=== PATIENT | female | born 1935 | race Caucasian/White ===

== ENCOUNTER → 2016-03-26 | Outpatient (CLI) | payer OTHER, MEDICARE ==
[~2016-03-26] MED LIST: CETI10TA84 PO; CHOL100010 PO; CLC6 PO; CMD5 PO; CRDCD180 PO; GABA-112 PO; GABA1CAP5 PO; HMLIS SQ; INSDGIPEN SC; LCTX PO; LSX40 PO; METO25TA3 PO; PRLSR20 PO; SPIR50TA2 PO; SYN75 PO
[2016-03-26 11:30] LABS: ESTIMATED AVERAGE GLUCOSE 166 mg/dl; HA1C FLAG Normal (Normal)
== END | disposition home or self-care (01) ==
LOC: C.LAB1850 10:18
PROVIDERS: ATTEND Family Medicine
DX: E11.9 Type 2 diabetes mellitus without complications (principal)

== ENCOUNTER → 2016-04-09 | Outpatient (CLI) | payer OTHER, MEDICARE ==
--- NOTE | 2016-04-14 06:58 | CODING QUERY MEDICAL NECESSITY ---
SUPPORTING DIAGNOSIS NEEDED A supporting diagnosis is required for the test/procedure performed on this patient in order for us to be reimbursed by the patient's insurance. Please provide a supporting diagnosis for the following test/procedure listed below next to the test name along with your signature. *If there is no additional diagnosis for this patient that would support the following test/procedure please document that below next to the test/procedure. Test(s)/Procedure(s) that require a supporting diagnosis: * DXA BONE DENSITY DIAGNOSIS: * DOS: 04/09/16 Provider Signature: Date: Thank you Yusra More Health Information Management Once completed, please kindly fax back to [phone] For questions please call [phone]
== END | disposition home or self-care (01) ==
LOC: C.MAMM 08:59
PROVIDERS: ATTEND Family Medicine
DX: M85.80 Other specified disorders of bone density and structure, unspecified site (principal); M85.852 Other specified disorders of bone density and structure, left thigh; M85.851 Other specified disorders of bone density and structure, right thigh

== ENCOUNTER → 2016-06-30 | Outpatient (CLI) | payer OTHER, MEDICARE ==
[2016-06-30 12:27] LABS: HEMATOCRIT 38.1 % (37-47); MEAN CELL VOLUME 96.2 fL (80-100); MEAN CORPUSCULAR HEMOGLOBIN 31.3 pg (25-34); MEAN CORPUSCULAR HGB CONC 32.5 g/dl (32-36); MEAN PLATELET VOLUME 9.6 fL (7.4-10.4); PLATELET COUNT 170 K/uL (130-400); RED BLOOD COUNT 3.96 M/uL (4.2-5.4); WHITE BLOOD COUNT 6.72 K/uL (4.8-10.8)
[2016-06-30 12:47] LABS: URINE APPEARANCE CLEAR (CLEAR); URINE BILIRUBIN NEG (NEG); URINE COLOR YELLOW; URINE NITRITE NEG (NEG); URINE SPECIFIC GRAVITY 1.013 (1.000-1.030); UROBILINOGEN NEG (NEG)
[2016-06-30 12:55] LABS: MANUAL MICROSCOPIC REQUIRED? NO; REVIEW REQ? NO
[2016-06-30 13:04] LABS: URINE PROTIEN/CREAT RATIO 0.3 (0-0.2); URINE TOTAL PROTEIN 10.1 mg/dl (0-11.9)
[2016-06-30 13:14] LABS: BLOOD UREA NITROGEN 76 mg/dl (7-18); BUN/CREATININE RATIO 41.9 (10-20); CARBON DIOXIDE 24 mmol/L (21-32); CHLORIDE 105 mmol/L (98-107); GLUCOSE 163 mg/dl (70-99); POTASSIUM 4.4 mmol/L (3.5-5.1); SODIUM 138 mmol/L (136-145)
[2016-06-30 13:15] LABS: PHOSPHORUS 3.6 mg/dl (2.5-4.9)
[2016-06-30 13:30] LABS: CALCIUM 9.6 mg/dl (8.5-10.1)
== END | disposition home or self-care (01) ==
LOC: C.LAB1850 10:47
PROVIDERS: ATTEND Internal Medicine Nephrology
DX: N18.3 Chronic kidney disease, stage 3 (moderate) (principal); I12.9 Hypertensive chronic kidney disease with stage 1 through stage 4 chronic kidney disease, or unspecified chronic kidney disease; N25.81 Secondary hyperparathyroidism of renal origin; E55.9 Vitamin D deficiency, unspecified; R80.9 Proteinuria, unspecified; D64.9 Anemia, unspecified

== ENCOUNTER → 2016-07-22 | Outpatient (CLI) | payer OTHER, MEDICARE ==
[2016-07-22 13:29] LABS: CHOLESTEROL/HDL RATIO 4.1; THYROID STIMULATING HORMONE 4.82 uIu/ml (0.300-4.500)
[2016-07-22 13:38] LABS: ESTIMATED AVERAGE GLUCOSE 169 mg/dl; HA1C FLAG Normal (Normal)
== END | disposition home or self-care (01) ==
LOC: C.LAB1850 11:17
PROVIDERS: ATTEND Family Medicine
DX: E11.9 Type 2 diabetes mellitus without complications (principal); K74.60 Unspecified cirrhosis of liver; E03.9 Hypothyroidism, unspecified

== ENCOUNTER → 2016-09-11 | Outpatient (CLI) | payer OTHER, MEDICARE ==
--- NOTE | 2016-09-11 12:44 | DIAGNOSTIC IMAGING REPORT ---
RIGHT ANKLE MIN 3 VIEWS ROUTINE HISTORY:79 [id number] Ankle sprain. COMPARISON: None available. TECHNIQUE: 3 views of the right ankle. FINDINGS: No acute fracture or dislocation is identified. There moderate degenerative changes of the tibiotalar joint, hindfoot and imaged mid foot with prominent spurring about the calcaneus. Vascular calcifications are noted. There is spurring of the distal tibiofibular syndesmosis. There is moderate soft tissue swelling of the imaged lower extremity without radiopaque foreign body. IMPRESSION: 1. Moderate soft tissue swelling about the lower extremity without acute fracture or dislocation identified. 2. Moderate degenerative changes of the tibiotalar joint, hindfoot and imaged midfoot. 3. Peripheral vascular disease. The above report was generated using voice recognition software. It may contain grammatical, syntax or spelling errors. Electronically signed by: Sukhwinder Francisco 09/11/2016 12:42 PM Dictated Date/Time: 09/11/2016 12:40 PM
== END | disposition home or self-care (01) ==
LOC: C.RADBC 12:16
PROVIDERS: ATTEND Internal Medicine
DX: S99.919A Unspecified injury of unspecified ankle, initial encounter (principal); X58.XXXA Exposure to other specified factors, initial encounter

== ENCOUNTER → 2016-09-16 | Outpatient (CLI) | payer OTHER, MEDICARE | END | disposition home or self-care (01) | LOC: C.LABBC 10:30 | PROVIDERS: ATTEND Physician Assistant | DX: M10.9 Gout, unspecified (principal) ==

== ENCOUNTER → 2016-10-27 | Outpatient (CLI) | payer OTHER, MEDICARE ==
[2016-10-27 12:16] LABS: BLOOD UREA NITROGEN 46 mg/dl (7-18); BUN/CREATININE RATIO 30.4 (10-20); CALCIUM 8.9 mg/dl (8.5-10.1); CARBON DIOXIDE 25 mmol/L (21-32); CHLORIDE 106 mmol/L (98-107); GLUCOSE 210 mg/dl (70-99); POTASSIUM 5.1 mmol/L (3.5-5.1); SODIUM 137 mmol/L (136-145)
== END | disposition home or self-care (01) ==
LOC: C.LAB1850 10:40
PROVIDERS: ATTEND Internal Medicine Cardiovascular Disease
DX: N18.3 Chronic kidney disease, stage 3 (moderate) (principal); I12.9 Hypertensive chronic kidney disease with stage 1 through stage 4 chronic kidney disease, or unspecified chronic kidney disease; I50.30 Unspecified diastolic (congestive) heart failure; R60.0 Localized edema

== ENCOUNTER → 2016-11-10 | Outpatient (CLI) | payer OTHER, MEDICARE ==
[2016-11-10 13:27] LABS: BLOOD UREA NITROGEN 70 mg/dl (7-18); BUN/CREATININE RATIO 41.4 (10-20); CALCIUM 9.4 mg/dl (8.5-10.1); CARBON DIOXIDE 23 mmol/L (21-32); CHLORIDE 103 mmol/L (98-107); GLUCOSE 297 mg/dl (70-99); POTASSIUM 4.7 mmol/L (3.5-5.1); SODIUM 136 mmol/L (136-145)
== END | disposition home or self-care (01) ==
LOC: C.LAB1850 10:05
PROVIDERS: ATTEND Physician Assistant
DX: I50.30 Unspecified diastolic (congestive) heart failure (principal)

== ENCOUNTER → 2016-11-26 | Outpatient (CLI) | payer OTHER, MEDICARE ==
[2016-11-26 17:04] LABS: BLOOD UREA NITROGEN 62 mg/dl (7-18); BUN/CREATININE RATIO 41.6 (10-20); CARBON DIOXIDE 23 mmol/L (21-32); CHLORIDE 103 mmol/L (98-107); GLUCOSE 160 mg/dl (70-99); SODIUM 133 mmol/L (136-145)
== END | disposition home or self-care (01) ==
LOC: C.LAB1850 16:01
PROVIDERS: ATTEND Internal Medicine
DX: M10.9 Gout, unspecified (principal)

== ENCOUNTER → 2016-12-07 | Outpatient (CLI) | payer OTHER, MEDICARE | END | disposition home or self-care (01) | LOC: C.LAB1850 11:13 | PROVIDERS: ATTEND Nurse Practitioner Adult Health | DX: M10.9 Gout, unspecified (principal) ==

== ENCOUNTER → 2016-12-30 | Outpatient (CLI) | payer OTHER, MEDICARE ==
[2016-12-30 14:41] LABS: HEMATOCRIT 36.5 % (37-47); MEAN CELL VOLUME 90.8 fL (80-100); MEAN CORPUSCULAR HEMOGLOBIN 31.1 pg (25-34); MEAN CORPUSCULAR HGB CONC 34.2 g/dl (32-36); MEAN PLATELET VOLUME 9.8 fL (7.4-10.4); PLATELET COUNT 150 K/uL (130-400); RED BLOOD COUNT 4.02 M/uL (4.2-5.4); WHITE BLOOD COUNT 15.57 K/uL (4.8-10.8)
[2016-12-30 14:53] LABS: URINE APPEARANCE CLEAR (CLEAR); URINE BILIRUBIN NEG (NEG); URINE COLOR YELLOW; URINE NITRITE NEG (NEG); URINE SPECIFIC GRAVITY 1.015 (1.000-1.030); UROBILINOGEN NEG (NEG)
[2016-12-30 14:54] LABS: MANUAL MICROSCOPIC REQUIRED? NO; REVIEW REQ? NO
[2016-12-30 15:00] LABS: BLOOD UREA NITROGEN 94 mg/dl (7-18); BUN/CREATININE RATIO 46.6 (10-20); CALCIUM 9.3 mg/dl (8.5-10.1); CARBON DIOXIDE 25 mmol/L (21-32); CHLORIDE 97 mmol/L (98-107); CREATININE 2.02 mg/dl (0.60-1.20); GLUCOSE 189 mg/dl (70-99); PHOSPHORUS 2.4 mg/dl (2.5-4.9); POTASSIUM 4.3 mmol/L (3.5-5.1); SODIUM 131 mmol/L (136-145)
[2016-12-30 15:03] LABS: CREATININE, URINE 41.1 mg/dl; URINE PROTIEN/CREAT RATIO 0.2 (0-0.2); URINE TOTAL PROTEIN 9.6 mg/dl (0-11.9)
== END | disposition home or self-care (01) ==
LOC: C.LAB1850 12:50
PROVIDERS: ATTEND Internal Medicine Nephrology
DX: I12.9 Hypertensive chronic kidney disease with stage 1 through stage 4 chronic kidney disease, or unspecified chronic kidney disease (principal); N18.3 Chronic kidney disease, stage 3 (moderate); N25.81 Secondary hyperparathyroidism of renal origin; E55.9 Vitamin D deficiency, unspecified; R80.9 Proteinuria, unspecified; D64.9 Anemia, unspecified

== ENCOUNTER → 2017-01-18 | Outpatient (CLI) | payer OTHER, MEDICARE ==
--- NOTE | 2017-01-19 07:43 | MAMMOGRAPHY REPORT ---
BILATERAL DIGITAL SCREENING MAMMOGRAM WITH CAD: 01/18/2017 CLINICAL HISTORY: Routine screening. Patient has no complaints. TECHNIQUE: Bilateral CC, MLO and repeat left MLO views were obtained. Current study was also evalua laura with a Computer Aided Detection (CAD) system. COMPARISON: Comparison is made to exams dated: 01/16/2016 mammogram, 08/22/2014 mammogram, 11/08/2012 m ammogram, 10/28/2011 mammogram, 09/19/2010 mammogram, and 04/09/2009 mammogram - [facility]. BREAST COMPOSITION: There are scattered areas of fibroglandular density in both breasts. FINDINGS: There are moderate to marked vascular calcifications and benign rim and coarse calcificati ons in both breasts. No new suspicious mass, architectural distortion or cluster of microcalcificat ions is seen. IMPRESSION: ACR BI-RADS CATEGORY 2: BENIGN There is no mammographic evidence of malignancy. A 1 year screening mammogram is recommended. The pa tient will receive written notification of the results. Approximately 10% of breast cancers are not detected with mammography. A negative mammographic report should not delay biopsy if a clinically suggestive mass is present. Carrie Slaughter M.D. ay/:01/18/2017 15:23:54 Floor Care Specialist: Nancie HAIDERR, M, [facility] letter sent: Normal 1/2 BI-RADS Code: ACR BI-RADS Category 2: Benign
== END | disposition home or self-care (01) ==
LOC: C.MAMM 13:28
PROVIDERS: ATTEND Internal Medicine
DX: Z12.31 Encounter for screening mammogram for malignant neoplasm of breast (principal)

== ENCOUNTER → 2017-02-09 | Outpatient (CLI) | payer OTHER, MEDICARE ==
[2017-02-09 13:51] LABS: BLOOD UREA NITROGEN 86 mg/dl (7-18); BUN/CREATININE RATIO 46.2 (10-20); CALCIUM 9.6 mg/dl (8.5-10.1); CARBON DIOXIDE 21 mmol/L (21-32); CHLORIDE 103 mmol/L (98-107); CREATININE 1.86 mg/dl (0.60-1.20); GLUCOSE 164 mg/dl (70-99); POTASSIUM 4.6 mmol/L (3.5-5.1); SODIUM 133 mmol/L (136-145); URIC ACID 7.1 mg/dl (2.6-7.2)
== END | disposition home or self-care (01) ==
LOC: C.LAB1850 11:24
PROVIDERS: ATTEND Internal Medicine Rheumatology
DX: N18.3 Chronic kidney disease, stage 3 (moderate) (principal)

== ENCOUNTER → 2017-02-10 | Outpatient (CLI) | payer OTHER, MEDICARE ==
[2017-02-10 13:22] LABS: MEAN CELL VOLUME 92.7 fL (80-100); MEAN CORPUSCULAR HEMOGLOBIN 31.3 pg (25-34); MEAN CORPUSCULAR HGB CONC 33.8 g/dl (32-36); MEAN PLATELET VOLUME 10.2 fL (7.4-10.4); PLATELET COUNT 149 K/uL (130-400); RED BLOOD COUNT 3.99 M/uL (4.2-5.4); WHITE BLOOD COUNT 11.86 K/uL (4.8-10.8)
[2017-02-10 13:53] LABS: BLOOD UREA NITROGEN 78 mg/dl (7-18); CALCIUM 9.3 mg/dl (8.5-10.1); CARBON DIOXIDE 22 mmol/L (21-32); CHLORIDE 102 mmol/L (98-107); GLUCOSE 270 mg/dl (70-99); PHOSPHORUS 2.7 mg/dl (2.5-4.9); POTASSIUM 4.8 mmol/L (3.5-5.1); SODIUM 132 mmol/L (136-145)
[2017-02-10 14:51] LABS: URINE APPEARANCE CLEAR (CLEAR); URINE BILIRUBIN NEG (NEG); URINE COLOR ORANGE; URINE EPITHELIAL CELL AUTO 20-30 /lpf (0-5); URINE NITRITE NEG (NEG); URINE SPECIFIC GRAVITY 1.016 (1.000-1.030); UROBILINOGEN NEG (NEG)
[2017-02-10 14:52] LABS: MANUAL MICROSCOPIC REQUIRED? NO; REVIEW REQ? NO
[2017-02-10 15:10] LABS: CREATININE, URINE 22.7 mg/dl; URINE PROTIEN/CREAT RATIO 0.6 (0-0.2); URINE TOTAL PROTEIN 14.6 mg/dl (0-11.9)
== END | disposition home or self-care (01) ==
LOC: C.LAB1850 12:27
PROVIDERS: ATTEND Internal Medicine Nephrology
DX: N18.3 Chronic kidney disease, stage 3 (moderate) (principal); N25.81 Secondary hyperparathyroidism of renal origin; D64.9 Anemia, unspecified; E55.9 Vitamin D deficiency, unspecified

== ENCOUNTER → 2017-02-15 | Outpatient (CLI) | payer OTHER, MEDICARE | END | disposition home or self-care (01) | LOC: C.LAB1850 11:27 | PROVIDERS: ATTEND Internal Medicine Rheumatology | DX: N18.3 Chronic kidney disease, stage 3 (moderate) (principal) ==

== ENCOUNTER → 2017-04-16 | Outpatient (CLI) | payer OTHER, MEDICARE ==
[~2017-04-16] MED LIST changes: +GABA-1220 PO; -GABA1CAP5 PO
== END | disposition home or self-care (01) ==
LOC: C.LAB1850 11:52
PROVIDERS: ATTEND Internal Medicine Rheumatology
DX: M10.9 Gout, unspecified (principal)

== ENCOUNTER 2017-04-26 11:36 | Emergency (ER) | payer OTHER, MEDICARE ==
[~2017-04-26] VITALS: Ht 167.6 cm; Wt 96.9 kg
[2017-04-26 11:44] VITALS: TEMP 36.7; Ht 167.6 cm; Wt 96.9 kg
[2017-04-26] MEDS ORDERED: INSDGI SC (12:20)
[2017-04-26] MEDS ORDERED: NRN400 PO (12:20)
[2017-04-26] MEDS ORDERED: CALC600T PO (12:20)
[2017-04-26] MEDS ORDERED: DTRSR/10 PO (12:20)
[2017-04-26] MEDS ORDERED: QSTP/ PO (12:20)
[2017-04-26] MEDS ORDERED: APIX1TAB PO (12:20)
[2017-04-26] MEDS ORDERED: FERR325T18 PO (12:20)
[2017-04-26] MEDS ORDERED: FEBU40TA PO (12:20)
[2017-04-26] MEDS ORDERED: CZR25 PO (12:20)
[2017-04-26] MEDS ORDERED: CETI10TA84 PO (12:20)
[2017-04-26] MEDS ORDERED: CLR10 PO (12:20)
[2017-04-26] MEDS ORDERED: CHOL1000 PO (12:20)
[2017-04-26] MEDS ORDERED: SYN100 PO (12:20)
[2017-04-26] MEDS ORDERED: FRS/40 PO (12:20)
[2017-04-26] MEDS ORDERED: ASCA500 PO (12:20)
[2017-04-26] MEDS ORDERED: HMLIS SC (12:20)
[2017-04-26] MEDS ORDERED: DPRSCR15 TOP (12:20)
[2017-04-26] MEDS ORDERED: SPIR50TA2 PO (12:20)
[2017-04-26] MEDS ORDERED: DILT120C68 PO (12:20)
--- NOTE | 2017-04-26 12:51 | DIAGNOSTIC IMAGING REPORT ---
CT SCAN OF THE BRAIN WITHOUT IV CONTRAST CLINICAL HISTORY: Fall. Trauma. COMPARISON STUDY: CT of the brain dated 10/29/2013. TECHNIQUE: Unenhanced axial CT scan of the brain is performed from the vertex to the skull base. A dose lowering technique was utilized adhering to the principles of ALARA. The examination is moderately degraded by motion artifact. CT DOSE: 1402.45 mGy.cm FINDINGS: Brain parenchyma: Left parietal encephalomalacia is unchanged and consistent with a remote insult. There are age-related involutional changes noting mild subcortical and periventricular microangiopathic change. There is no hemorrhage, mass effect, or evidence of acute territorial ischemia by CT criteria. Ray-white matter is preserved. No extra-axial fluid collection is seen. Ventricles, sulci, cisterns: Prominent secondary to involutional change. Intracranial vasculature: There is atherosclerotic calcification of the cavernous carotid and vertebral arteries. Calvarium: The skeletal structures are osteopenic. No depressed calvarial fracture is seen. Soft tissues: There is a left frontal scalp hematoma. Sinuses and mastoids: Moderate mucosal thickening is seen in the right maxillary antrum. Mucosal thickening and fluid is seen within the sphenoid sinuses. The remaining Visualized paranasal sinuses are clear. The mastoid air cells are well pneumatized. Orbits: The bony orbits are grossly intact. There are bilateral ocular lens implants. IMPRESSION: 1. There is no hemorrhage, mass effect, or evidence of acute territorial ischemia by CT criteria noting a motion compromised examination. 2. Left frontal scalp hematoma. No depressed calvarial fracture is seen. 3. Paranasal sinus disease as above. Electronically signed by: Keo Adorno M.D. 04/26/2017 12:50 PM Dictated Date/Time: 04/26/2017 12:47 PM
--- NOTE | 2017-04-26 12:54 | DIAGNOSTIC IMAGING REPORT ---
CT OF THE CERVICAL SPINE WITHOUT CONTRAST CLINICAL HISTORY: Fall. COMPARISON STUDY: No previous studies for comparison. TECHNIQUE: Helical axial images of the cervical spine were obtained without IV contrast. Sagittal and coronal reconstructions were viewed. A dose lowering technique was utilized adhering to the principles of ALARA. FINDINGS: Alignment of the cervical spine is anatomic. The craniocervical junction is intact. There is no acute cervical spine fracture. There is extensive anterior osteophytosis of the cervical spine and upper thoracic spine. There is no prevertebral edema. IMPRESSION: 1. No acute cervical spine fracture or subluxation. 2. Extensive anterior osteophytosis of the cervical spine and upper thoracic spine. Electronically signed by: Ritesh Cobb M.D. 04/26/2017 12:53 PM Dictated Date/Time: 04/26/2017 12:49 PM
[2017-04-26 13:10] LABS: BASO % 0.2 %; BASO ABS # 0.02 K/uL (0-0.2); HEMATOCRIT 37.6 % (37-47); HEMOGLOBIN 13.2 g/dL (12.0-16.0); IG# 0.21 K/uL (0.00-0.02); LYMPH % 5.1 %; LYMPH ABS # 0.58 K/uL (1.2-3.4); MEAN CELL VOLUME 89.3 fL (80-100); MEAN CORPUSCULAR HEMOGLOBIN 31.4 pg (25-34); MEAN CORPUSCULAR HGB CONC 35.1 g/dl (32-36); MEAN PLATELET VOLUME 9.5 fL (7.4-10.4); MONO % 5.4 %; MONO ABS # 0.61 K/uL (0.11-0.59); NEUT % 87.4 %; NEUT ABS # 9.87 K/uL (1.4-6.5); NUCLEATED RED BLOOD CELL ABS 0.04 K/uL (0-0); PLATELET COUNT 249 K/uL (130-400); RED CELL DISTRIBUTION WIDTH SD 45.6 fL (36.4-46.3); WHITE BLOOD COUNT 11.29 K/uL (4.8-10.8)
[2017-04-26] MEDS ORDERED: SODIUM CHLORIDE 0.9% 1000ML 1,000 ML IV STA (13:21)
--- NOTE | 2017-04-26 13:23 | DIAGNOSTIC IMAGING REPORT ---
L TIBIA/FIBULA 2 VIEWS ROUTINE CLINICAL HISTORY: L bobby pain COMPARISON: None. DISCUSSION: The bones are osteopenic. There is anterior soft tissue edema. There are vascular calcifications present. No acute fractures are visualized. There are postsurgical changes present within the talus. IMPRESSION: Soft tissue swelling. No acute fractures identified. Electronically signed by: Greg Gonzalez M.D. 04/26/2017 1:21 PM Dictated Date/Time: 04/26/2017 1:20 PM
--- NOTE | 2017-04-26 13:25 | DIAGNOSTIC IMAGING REPORT ---
RIGHT FOOT 2 VIEWS CLINICAL HISTORY: Fall with right foot pain. FINDINGS: AP and lateral views of the right foot are obtained. No prior studies are available for comparison at the time of dictation. The skeletal structures are osteopenic. No fracture is seen. Moderate arthritic change is seen at the first metatarsophalangeal joint. Moderate arthritic change is also seen in the midfoot. There is a large plantar calcaneal enthesophyte. No erosive disease is seen. Degenerative spurring is noted along the dorsal aspect of the tarsal bones. Soft tissue edema is present in the right foot and ankle. Advanced atherosclerotic calcification is noted in the regional arteries. IMPRESSION: 1. Soft tissue swelling with no fracture identified. 2. Osteopenia, arthritic change, and heel spur as above. Electronically signed by: Keo Adorno M.D. 04/26/2017 1:24 PM Dictated Date/Time: 04/26/2017 1:21 PM
[2017-04-26 13:34] LABS: ALBUMIN 3.4 gm/dl (3.4-5.0); CALCIUM 10.1 mg/dl (8.5-10.1); CREATININE 1.79 mg/dl (0.60-1.20); POTASSIUM 4.9 mmol/L (3.5-5.1); TOTAL PROTEIN 7.3 gm/dl (6.4-8.2)
[2017-04-26] MEDS ORDERED: NovoLIN-R INSULIN PER UNIT CHARGE SC STA (13:40)
--- NOTE | 2017-04-26 13:48 | DIAGNOSTIC IMAGING REPORT ---
CT SCAN OF THE FACIAL BONES WITHOUT IV CONTRAST CLINICAL HISTORY: Fall with facial injury. COMPARISON STUDY: CT of the brain performed the same day 04/26/2017. CT scan of the sinuses dated 04/16/2006. TECHNIQUE: High-resolution CT scan of the facial bones is performed. Images are reviewed in the axial, sagittal, and coronal planes. IV contrast was not administered for this examination. A dose lowering technique was utilized adhering to the principles of ALARA. FINDINGS: The skeletal structures are osteopenic. There is no evidence of facial bone fracture. The bony orbits are intact and the orbital contents are within normal limits noting bilateral ocular lens implants. The zygomatic arches, nasal bones, and pterygoid plates are preserved. The maxilla and mandible are intact. Arthritic change is seen at the temporomandibular joints. There are no layering blood products within the paranasal sinuses. Moderate mucosal thickening and calcified debris is present within the right maxillary antrum. Trace mucosal thickening is seen in the left maxillary antrum. Fluid and secretions are seen within the sphenoid sinuses. The mastoid air cells are well pneumatized. The visualized calvarium and upper cervical spine are maintained. Cervical spondylosis is partially imaged. Partially imaged brain parenchyma is within normal limits noting age-related involutional change. There is a left frontal and periorbital scalp hematoma. IMPRESSION: 1. There is no evidence of facial bone fracture. 2. Left frontal and periorbital scalp hematoma. 3. Paranasal sinus disease as above. Electronically signed by: Keo Adorno M.D. 04/26/2017 1:47 PM Dictated Date/Time: 04/26/2017 1:43 PM
[2017-04-26] MEDS ORDERED: LIDOCAINE/EPINEPH/TETRACAINE 1 EA SYR ONE (14:04)
[2017-04-26] MEDS ORDERED: LIDO/EPINEPHRINE/SOD BICARB 20 ML VIAL INFIL ONE (14:04)
[2017-04-26] MEDS ORDERED: NovoLIN-R INSULIN PER UNIT CHARGE IV STA ×3 (14:17→17:27)
[2017-04-26] MEDS ORDERED: ACETAMINOPHEN 500 MG TAB PO STA (14:25)
[2017-04-26] MEDS ORDERED: DIPHTHERIA/TETANUS/PERTUSSIS 0.5 ML SYR/VIAL IM. ONE (14:30)
[2017-04-26] MEDS ORDERED: SODIUM CHLORIDE 0.9% 500ML 500 ML IV STA (14:36)
--- NOTE | 2017-04-26 14:51 | EMERGENCY ROOM VISIT NOTE ---
ED Visit Note EMERGENCY DEPARTMENT PROCEDURE NOTE: I was asked by Dr. Mcclelland to repair the left eyebrow wound of this 81-year-old female patient. Please refer to their dictation for the complete history, physical exam, and ED course. EMERGENCY DEPARTMENT COURSE: The wound had been anesthetized with LET gel prior to my evaluation. The wound was cleansed with saline, then prepped with Betadine and draped with sterile towels. Additional 1% buffered lidocaine with epinephrine was infiltrated, for adequate anesthesia. The 2 cm laceration was irrigated copiously using normal saline solution and direct pressure irrigation. The wound was repaired using 4, 6-0 nylon sutures. Wounds were then cleansed and dressed. Patient tolerated the procedure well.
--- NOTE | 2017-04-26 15:46 | EMERGENCY ROOM VISIT NOTE ---
History Report prepared by Skyler: Marciano Rashid Under the Supervision of: Dr. Charanjit Mcclelland D.O. First contact with patient: 12:03 Chief Complaint: FALL Stated Complaint: FALL/LACERATION History of Present Illness The patient is a 81 year old female who presents to the Emergency Room with complaints of a mild fall that occurred [employer]. She has a past medical history of a atrial fibrillation and a previous stroke for which she is on Eliquis bid. Earlier this morning, the patient was going to a regular check up at the [facility] when she accidentally tripped causing her to fall forward onto her left side. She hit her head but did not lose consciousness or become weak/ numb. She is experiencing some mild neck stiffness, right foot pain, and left bobby pain. Pt denies headache, change in vision, fevers, chest pain, shortness of breath, nausea, vomiting, diarrhea, pain with urination, and melena. She does not believe that her Tetanus shot is up to date. Source of History: patient Onset: [employer] Position: other (Global) Symptom Intensity: mild Quality: other (Fall) Timing: resolved Associated Symptoms: + neck pain (stiffness), No LOC, No fevers, No headache , No chest pain, No SOB, No nausea, No vomiting, No abdominal pain, No back pain , No melena, No diarrhea, No urinary symptoms, No weakness, No numbness Note: She is having pain over her left eye, left bobby pain, and right foot pain. Review of Systems See HPI for pertinent positives & negatives. A total of 10 systems reviewed and were otherwise negative. Past Medical & Surgical Medical Problems: (1) CHF (congestive heart failure) (2) Stroke Family History Omitted secondary to the patient's age. Social History Smoking Status: Never Smoker Alcohol Use: none Occupation Status: retired Current/Historical Medications Scheduled Apixaban (Eliquis), 2.5 MG PO BID Ascorbic Acid (Vitamin C), 1 TAB PO DAILY Calcium Carbonate (Calcium 600), 600 MG PO DAILY Cholecalciferol (Vitamin D3), 1,000 UNITS PO DAILY Cholestyramine (Prevalite), 0.5-1 PKT PO DAILY Diltiazem Hcl Ext Rel (Tiazac), 120 MG PO DAILY Febuxostat (Uloric), 40 MG PO DAILY Ferrous Gluconate (Ferrous Gluconate), 1 TAB PO DAILY Furosemide (Lasix), 40 MG PO BID Gabapentin (Gabapentin), 400 MG PO BID Insulin Glargine (Lantus), 35 UNITS SC BID Insulin Human Lispro (Humalog Kwikpen), 1 DOSE SC UD Levothyroxine Sodium (Synthroid), 100 MCG PO DAILY Loratadine (Claritin), 10 MG PO HS Losartan Potassium (Losartan Potassium), 25 MG PO DAILY Oxybutynin Chloride (Oxybutynin Chloride ER), 10 MG PO DAILY Spironolactone (Aldactone), 50 MG PO DAILY Scheduled PRN Betamethasone Dip (Betamethasone Dipropionat), 1 APPLN TOP DAILY PRN for RASH Cetirizine (Zyrtec), 10 MG PO DAILY PRN for ALLERGIES Allergies Coded Allergies: Codeine (Verified Allergy, Mild, N/V, 04/26/17) Epinephrine (Verified Allergy, Mild, HEART RACING, 04/26/17) Avocado (Verified Allergy, Unknown, STOMACH ACHE AND DIARRHEA, 04/26/17) Physical Exam Vital Signs Date Time Temp Pulse Resp B/P (MAP) Pulse Ox O2 Delivery O2 Flow Rate FiO2 04/26/17 15:28 87 18 150/74 99 Room Air 04/26/17 14:24 102 04/26/17 13:40 86 18 172/98 98 Room Air 04/26/17 11:44 36.7 103 20 177/108 98 Room Air Physical Exam GENERAL: alert, well appearing, well nourished, no distress, non-toxic HEAD: normal cephalic. There is a 2 cm laceration above the left eyebrow with venous oozing. Abrasion to the left cheek with swelling around the left orbit. EYE EXAM: normal conjunctiva, PERRL and EOM's grossly intact OROPHARYNX: no exudate, no erythema, lips, buccal mucosa, and tongue normal and mucous membranes are moist EARS: TMs clear b/l NECK: supple, no nuchal rigidity, no adenopathy, non-tender CHEST: stable to compression anteriorly and posteriorly LUNGS: clear to auscultation. Normal chest wall mechanics HEART: no murmurs, S1 normal and S2 normal ABDOMEN: abdomen soft, non-tender, normo-active bowel sounds, no masses, no rebound or guarding. PELVIS: stable to compression anteriorly and posteriorly BACK: Back is symmetrical on inspection and there is no deformity, no midline tenderness, no CVA tenderness. UPPER EXTREMITIES: full active and passive range of motion of all joints without tenderness to palpation. Bruising over the left elbow. RUE atraumatic. LOWER EXTREMITIES: full active and passive range of motion of all joints without tenderness to palpation. Bruise to the proximal left Tib/Fib. Bruising to the dorsal aspect of the right foot. No other signs of trauma. NEURO EXAM: Normal sensorium, cranial nerves II-XII grossly intact, normal speech, no gross weakness of arms, no gross weakness of legs. GCS: 15. Medical Decision & Procedures ER Provider Diagnostic Interpretation: Radiology results as stated below per my review and the radiologist's interpretation: L TIBIA/FIBULA 2 VIEWS ROUTINE CLINICAL HISTORY: L bobby pain COMPARISON: None. DISCUSSION: The bones are osteopenic. There is anterior soft tissue edema. There are vascular calcifications present. No acute fractures are visualized. There are postsurgical changes present within the talus. IMPRESSION: Soft tissue swelling. No acute fractures identified. Electronically signed by: Greg Gonzalez M.D. 04/26/2017 1:21 PM Dictated Date/Time: 04/26/2017 1:[address] SCAN OF THE FACIAL BONES WITHOUT IV CONTRAST CLINICAL HISTORY: Fall with facial injury. COMPARISON STUDY: CT of the brain performed the same day 04/26/2017. CT scan of the sinuses dated 04/16/2006. TECHNIQUE: High-resolution CT scan of the facial bones is performed. Images are reviewed in the axial, sagittal, and coronal planes. IV contrast was not administered for this examination. A dose lowering technique was utilized adhering to the principles of ALARA. FINDINGS: The skeletal structures are osteopenic. There is no evidence of facial bone fracture. The bony orbits are intact and the orbital contents are within normal limits noting bilateral ocular lens implants. The zygomatic arches, nasal bones, and pterygoid plates are preserved. The maxilla and mandible are intact. Arthritic change is seen at the temporomandibular joints. There are no layering blood products within the paranasal sinuses. Moderate mucosal thickening and calcified debris is present within the right maxillary antrum. Trace mucosal thickening is seen in the left maxillary antrum. Fluid and secretions are seen within the sphenoid sinuses. The mastoid air cells are well pneumatized. The visualized calvarium and upper cervical spine are maintained. Cervical spondylosis is partially imaged. Partially imaged brain parenchyma is within normal limits noting age-related involutional change. There is a left frontal and periorbital scalp hematoma. IMPRESSION: 1. There is no evidence of facial bone fracture. 2. Left frontal and periorbital scalp hematoma. 3. Paranasal sinus disease as above. Electronically signed by: Keo Adorno M.D. 04/26/2017 1:47 PM Dictated Date/Time: 04/26/2017 1:[address] SCAN OF THE BRAIN WITHOUT IV CONTRAST CLINICAL HISTORY: Fall. Trauma. COMPARISON STUDY: CT of the brain dated 10/29/2013. TECHNIQUE: Unenhanced axial CT scan of the brain is performed from the vertex to the skull base. A dose lowering technique was utilized adhering to the principles of ALARA. The examination is moderately degraded by motion artifact. CT DOSE: 1402.45 mGy.cm FINDINGS: Brain parenchyma: Left parietal encephalomalacia is unchanged and consistent with a remote insult. There are age-related involutional changes noting mild subcortical and periventricular microangiopathic change. There is no hemorrhage, mass effect, or evidence of acute territorial ischemia by CT criteria. Ray-white matter is preserved. No extra-axial fluid collection is seen. Ventricles, sulci, cisterns: Prominent secondary to involutional change. Intracranial vasculature: There is atherosclerotic calcification of the cavernous carotid and vertebral arteries. Calvarium: The skeletal structures are osteopenic. No depressed calvarial fracture is seen. Soft tissues: There is a left frontal scalp hematoma. Sinuses and mastoids: Moderate mucosal thickening is seen in the right maxillary antrum. Mucosal thickening and fluid is seen within the sphenoid sinuses. The remaining Visualized paranasal sinuses are clear. The mastoid air cells are well pneumatized. Orbits: The bony orbits are grossly intact. There are bilateral ocular lens implants. IMPRESSION: 1. There is no hemorrhage, mass effect, or evidence of acute territorial ischemia by CT criteria noting a motion compromised examination. 2. Left frontal scalp hematoma. No depressed calvarial fracture is seen. 3. Paranasal sinus disease as above. Electronically signed by: Keo Adorno M.D. 04/26/2017 12:50 PM Dictated Date/Time: 04/26/2017 12:47 PM RIGHT FOOT 2 VIEWS CLINICAL HISTORY: Fall with right foot pain. FINDINGS: AP and lateral views of the right foot are obtained. No prior studies are available for comparison at the time of dictation. The skeletal structures are osteopenic. No fracture is seen. Moderate arthritic change is seen at the first metatarsophalangeal joint. Moderate arthritic change is also seen in the midfoot. There is a large plantar calcaneal enthesophyte. No erosive disease is seen. Degenerative spurring is noted along the dorsal aspect of the tarsal bones. Soft tissue edema is present in the right foot and ankle. Advanced atherosclerotic calcification is noted in the regional arteries. IMPRESSION: 1. Soft tissue swelling with no fracture identified. 2. Osteopenia, arthritic change, and heel spur as above. Electronically signed by: Keo Adorno M.D. 04/26/2017 1:24 PM Dictated Date/Time: 04/26/2017 1:[address] OF THE CERVICAL SPINE WITHOUT CONTRAST CLINICAL HISTORY: Fall. COMPARISON STUDY: No previous studies for comparison. TECHNIQUE: Helical axial images of the cervical spine were obtained without IV contrast. Sagittal and coronal reconstructions were viewed. A dose lowering technique was utilized adhering to the principles of ALARA. FINDINGS: Alignment of the cervical spine is anatomic. The craniocervical junction is intact. There is no acute cervical spine fracture. There is extensive anterior osteophytosis of the cervical spine and upper thoracic spine. There is no prevertebral edema. IMPRESSION: 1. No acute cervical spine fracture or subluxation. 2. Extensive anterior osteophytosis of the cervical spine and upper thoracic spine. Electronically signed by: Ritesh Cobb M.D. 04/26/2017 12:53 PM Dictated Date/Time: 04/26/2017 12:49 PM Laboratory Results 04/26/17 11:50 Red Blood Count 4.21, Mean Corpuscular Volume 89.3, Mean Corpuscular Hemoglobin 31.4, Mean Corpuscular Hemoglobin Concent 35.1, Mean Platelet Volume 9.5, Neutrophils (%) (Auto) 87.4, Lymphocytes (%) (Auto) 5.1, Monocytes (%) (Auto) 5.4, Eosinophils (%) (Auto) 0.0, Basophils (%) (Auto) 0.2, Neutrophils # (Auto) 9.87, Lymphocytes # (Auto) 0.58, Monocytes # (Auto) 0.61, Eosinophils # (Auto) 0.00, Basophils # (Auto) 0.02 04/26/17 11:50 Test 04/26/17 11:50 04/26/17 15:17 White Blood Count 11.29 K/uL (4.8-10.8) Red Blood Count 4.21 M/uL (4.2-5.4) Hemoglobin 13.2 g/dL (12.0-16.0) Hematocrit 37.6 % (37-47) Mean Corpuscular Volume 89.3 fL (80-100) Mean Corpuscular Hemoglobin 31.4 pg (25-34) Mean Corpuscular Hemoglobin Concent 35.1 g/dl (32-36) Platelet Count 249 K/uL (130-400) Mean Platelet Volume 9.5 fL (7.4-10.4) Neutrophils (%) (Auto) 87.4 % Lymphocytes (%) (Auto) 5.1 % Monocytes (%) (Auto) 5.4 % Eosinophils (%) (Auto) 0.0 % Basophils (%) (Auto) 0.2 % Neutrophils # (Auto) 9.87 K/uL (1.4-6.5) Lymphocytes # (Auto) 0.58 K/uL (1.2-3.4) Monocytes # (Auto) 0.61 K/uL (0.11-0.59) Eosinophils # (Auto) 0.00 K/uL (0-0.5) Basophils # (Auto) 0.02 K/uL (0-0.2) RDW Standard Deviation 45.6 fL (36.4-46.3) RDW Coefficient of Variation 14.0 % (11.5-14.5) Immature Granulocyte % (Auto) 1.9 % Immature Granulocyte # (Auto) 0.21 K/uL (0.00-0.02) Nucleated RBC Absolute Count (auto) 0.04 K/uL (0-0) Nucleated Red Blood Cells % 0.3 % Anion Gap 10.0 mmol/L (3-11) Est Creatinine Clear Calc Drug Dose 29.4 ml/min Estimated GFR () 30.5 Estimated GFR (Non- 26.3 BUN/Creatinine Ratio 38.5 (10-20) Calcium Level 10.1 mg/dl (8.5-10.1) Total Bilirubin 0.6 mg/dl (0.2-1) Direct Bilirubin 0.2 mg/dl (0-0.2) Aspartate Amino Transf (AST/SGOT) 19 U/L (15-37) Alanine Aminotransferase (ALT/SGPT) 38 U/L (12-78) Alkaline Phosphatase 96 U/L (45-117) Total Protein 7.3 gm/dl (6.4-8.2) Albumin 3.4 gm/dl (3.4-5.0) Lipase 212 U/L (73-393) Beta-Hydroxybutyric Acid 1.79 mg/dL (0.2-2.81) Bedside Glucose 453 mg/dl (70-90) Laboratory results per my review. Medications Administered Medications (Trade) Dose Ordered Sig/Ericka Route Start Time Stop Time Status Last Admin Dose Admin Sodium Chloride 1,000 ml @ 999 mls/hr Q1H1M STAT IV 04/26/17 13:21 04/26/17 14:21 DC 04/26/17 13:26 999 MLS/HR Insulin Human Regular (novoLIN-R U-100 PER UNIT) 10 units NOW STAT SC 04/26/17 13:40 04/26/17 13:41 DC 04/26/17 13:50 10 UNITS Tetracaine/ Epinephrine/ Lidocaine (L.e.t. Gel 4%/ 1:100/0.5%) 1 ea STK-MED ONCE .ROUTE 04/26/17 14:04 04/26/17 14:05 DC 04/26/17 14:09 1 EA Insulin Human Regular (novoLIN-R U-100 PER UNIT) 6 units NOW STAT IV 04/26/17 14:17 04/26/17 14:18 DC 04/26/17 14:23 6 UNITS Acetaminophen (Tylenol Tab) 1,000 mg NOW STAT PO 04/26/17 14:25 04/26/17 14:26 DC 04/26/17 14:51 1,000 MG Diphtheria/ Pertussis/Tetanus Vacc (Adacel Inj) 0.5 ml ONCE ONCE IM. 04/26/17 14:30 04/26/17 14:31 DC 04/26/17 14:52 0.5 ML Sodium Chloride 500 ml @ 999 mls/hr Q31M STAT IV 04/26/17 14:36 04/26/17 15:06 DC 04/26/17 14:53 999 MLS/HR Insulin Human Regular (novoLIN-R U-100 PER UNIT) 5 units NOW STAT IV 04/26/17 15:21 04/26/17 15:22 DC 04/26/17 15:26 5 UNITS ED Course ED COURSE: Vital signs were reviewed and showed tachycardic and situationally hypertensive The patients medical record was reviewed The above diagnostic studies were performed and reviewed. ED treatments and interventions as stated above. 1203: The patient was evaluated in room C7. A complete history and physical examination was performed. 1321: Ordered Sodium Chloride 1000 ml @ 999 mls/hr IV 1340: Ordered Insulin Human Regular 10 units SC 1416: I spoke with Yadiel from pharmacy at this time. They recommended a 5-10 unit IV insulin dose on top of what we already gave her. 1423: Yvonne Gil PA-C performed a laceration repair procedure. Please see her note for further information. 1425: Ordered Tylenol 1000 mg PO 1430: Ordered Adacel Inj 0.5 ml IM 3:30 PM patient BSG trended down to 450. She was given additional 5 units IV after discussion with diabetic pharmacist. Signed out to Dr. landa for reevaluation at [phone]. Medical Decision Differential diagnoses include major intracranial, cervical, spinal, thoracic, abdominal, pelvic and neurologic injury. Fracture, contusion, sprain, strain, laceration, abrasions included as well. 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 She is contusion to the left side of her face. Laceration over the left eyebrow which was repaired by my PA. Sutures will be removed in [address] head, face and cervical spine was negative for any acute fractures. X-ray of her left bobby and right foot were negative for fractures. Labs were obtained due to a BSG of 580. CBC was unremarkable. BMP shows a normal hemoglobin. Sodium is slightly low but I believe this is secondary to her elevated PSG. Creatinine was 1.7 which is close to baseline. Patient was given initially 10 units subcu of insulin along with 6 IV after discussion with our diabetic pharmacist. An hour later her BSG was 450. She was given an additional 5 units IV of regular insulin. She was signed out to Dr. landa to be discharged pending BSG continuing to trend down at around 4:40 PM to less than 400. Medication Reconcilliation Current Medication List: was personally reviewed by me Blood Pressure Screening Patient's blood pressure: Elevated blood pressure Blood pressure disposition: Elevated BP felt to be situational Impression Primary Impression: Fall Additional Impressions: Laceration Hyperglycemia Contusion of multiple sites Scribe Attestation The scribe's documentation has been prepared under my direction and personally reviewed by me in its entirety. I confirm that the note above accurately reflects all work, treatment, procedures, and medical decision making performed by me. Departure Information Dispostion Home / Self-Care Referrals Fernando Esquivel M.D. (PCP) Forms HOME CARE DOCUMENTATION FORM, IMPORTANT VISIT INFORMATION Patient Instructions ED Hyperglycemia Diabetic, ED Laceration [facility] Additional Instructions Please follow up with your primary care doctor with in the next 24 hours. Any worsening of your symptoms, please return to the ED immediately. This includes any fevers greater than 100.4, worsening pain, loss of vision, eye pain, chest pain, shortness breath, persistent nausea, vomiting, unable to eat or drink, or any other concerning signs or symptoms Please have sutures removed in 7 days. Any surrounding erythema, redness, discharge should be evaluated for infection at that time. Please monitor your blood sugars closely while taking steroids. Please contact your PCP to discuss treatment of your elevated blood sugars while taking steroids. Problem Qualifiers Primary Impression: Fall Encounter type: initial encounter Qualified Codes: W19.XXXA - Unspecified fall, initial encounter
[2017-04-26] MEDS ORDERED: INSULIN ASPART 100 UNITS/ML 3 ML PEN SC STA (17:27)
[2017-04-26 19:10] VITALS: BP 149/99; PULSE 82; O2SAT 96
--- NOTE | 2017-05-17 08:55 | EDITING REQUIRED CODING QUERY ---
CODING QUERY To promote full compliance with coding requirements relating to patient care, provider participation is requested in all cases of hair blender uncertainty. Please assist us with the question(s) below: Coding Question(s): Pt had hyperglycemia and was treated with insulin. Do we know the etiology of the hyperglycemia? Physician's Response(s):likely 2/2 DM Thank you Mague Ramirez Principal Diagnosis: "_that condition established after study, to be chiefly responsible for occasioning the admission of the patient to the hospital for care." Co-Existing Principal Diagnosis: "_when two or more diagnoses equally meet the criteria for principal diagnosis as determined by the circumstances of admission, diagnostic work up, and/or therapy provided, and the Alphabetic Index, Tabular List, or another coding guideline does not provide sequencing direction, any one of the diagnoses may be sequenced first." "When the physician has documented what appears to be a current diagnosis in the body of the record, but has not included the diagnosis in the final diagnostic statement, the physician should be asked whether the diagnosis should be added." (Source Coding [facility] 2 QTR90. p3-4)
== END 2017-04-26 19:18 | disposition home or self-care (01) ==
LOC: EDBD 11:36 → C.EDC 11:38
DX: S01.112A Laceration without foreign body of left eyelid and periocular area, initial encounter (principal); R73.9 Hyperglycemia, unspecified; S00.81XA Abrasion of other part of head, initial encounter; S50.02XA Contusion of left elbow, initial encounter; S80.12XA Contusion of left lower leg, initial encounter; S90.31XA Contusion of right foot, initial encounter; W01.0XXA Fall on same level from slipping, tripping and stumbling without subsequent striking against object, initial encounter; Y92.531 Health care provider office as the place of occurrence of the external cause; R00.0 Tachycardia, unspecified; I50.9 Heart failure, unspecified; I48.91 Unspecified atrial fibrillation; Z86.73 Personal history of transient ischemic attack (TIA), and cerebral infarction without residual deficits; Z79.01 Long term (current) use of anticoagulants; Z79.4 Long term (current) use of insulin; Z88.5 Allergy status to narcotic agent; Z88.8 Allergy status to other drugs, medicaments and biological substances; Z91.018 Allergy to other foods; Z23 Encounter for immunization

== ENCOUNTER 2017-05-02 10:05 | Inpatient (IN) | payer OTHER, MEDICARE ==
[~2017-05-02] VITALS: Ht 165.1 cm; Wt 92.0 kg
[~2017-05-02 10:05] MED LIST changes: +APIX1TAB PO; +ASCA500 PO; +CALC600T PO; +CHOL1000 PO; -CHOL100010 PO; -CLC6 PO; +CLR10 PO; -CMD5 PO; -CRDCD180 PO; +CZR25 PO; +DILT120C68 PO; +DPRSCR15 TOP; +DTRSR/10 PO; +FEBU40TA PO; +FERR325T18 PO; +FRS/40 PO; -GABA-112 PO; -GABA-1220 PO; +HMLIS SC; -HMLIS SQ; +INSDGI SC; -INSDGIPEN SC; -LCTX PO; -LSX40 PO; -METO25TA3 PO; +NRN400 PO; -PRLSR20 PO; +QSTP/ PO; +SYN100 PO; -SYN75 PO
--- NOTE | 2017-05-02 11:06 | DIAGNOSTIC IMAGING REPORT ---
CHEST ONE VIEW PORTABLE CLINICAL HISTORY: Atypical chest pain COMPARISON STUDY: October 2013 FINDINGS: The heart is enlarged. There is no focal pulmonary consolidation. There is mild central vascular prominence. There is blunting of the left lateral costophrenic angle suggesting a small effusion.[ IMPRESSION: Cardiomegaly and suspected small left pleural effusion. No evidence of focal pulmonary consolidation Electronically signed by: Greg Gonzalez M.D. 05/02/2017 11:04 AM Dictated Date/Time: 05/02/2017 11:03 AM
[2017-05-02 11:24] LABS: EOS % 0.5 %; EOS ABS # 0.05 K/uL (0-0.5); HEMATOCRIT 37.8 % (37-47); HEMOGLOBIN 12.6 g/dL (12.0-16.0); IG# 0.14 K/uL (0.00-0.02); LYMPH % 6.6 %; LYMPH ABS # 0.72 K/uL (1.2-3.4); MEAN CELL VOLUME 91.7 fL (80-100); MEAN CORPUSCULAR HEMOGLOBIN 30.6 pg (25-34); MEAN CORPUSCULAR HGB CONC 33.3 g/dl (32-36); MEAN PLATELET VOLUME 9.5 fL (7.4-10.4); MONO % 5.4 %; MONO ABS # 0.59 K/uL (0.11-0.59); NEUT % 86.2 %; NEUT ABS # 9.49 K/uL (1.4-6.5); PLATELET COUNT 165 K/uL (130-400); RED CELL DISTRIBUTION WIDTH CV 14.2 % (11.5-14.5); RED CELL DISTRIBUTION WIDTH SD 47.7 fL (36.4-46.3); WHITE BLOOD COUNT 10.99 K/uL (4.8-10.8)
[2017-05-02 11:32] LABS: PTT PATIENT 23.9 SECONDS (21.0-31.0)
[2017-05-02 11:43] LABS: ALBUMIN 2.9 gm/dl (3.4-5.0); BLOOD UREA NITROGEN 59 mg/dl (7-18); CARBON DIOXIDE 23 mmol/L (21-32); GLUCOSE 294 mg/dl (70-99); POTASSIUM 4.4 mmol/L (3.5-5.1); SODIUM 133 mmol/L (136-145)
[2017-05-02 11:55] LABS: ALT/SGPT 33 U/L (12-78); LIPASE 244 U/L (73-393)
[2017-05-02 11:59] LABS: ALKALINE PHOSPHATASE 73 U/L (45-117); AST/SGOT 17 U/L (15-37); TOTAL PROTEIN 6.5 gm/dl (6.4-8.2)
[2017-05-02] MEDS ORDERED: FUROSEMIDE 40 MG/4 ML VIAL IV STA (13:03)
[2017-05-02] MEDS ORDERED: DEXTROSE 50% 50 ML SYR IV PRN (14:00)
[2017-05-02] MEDS ORDERED: ONDANSETRON INJ 2 MG/ML 2 ML VIAL IV PRN (14:00)
[2017-05-02] MEDS ORDERED: GLUCAGON FOR INJ 1 MG VIAL SQ PRN (14:00)
[2017-05-02] MEDS ORDERED: GLUCOSE 10 TABS/TUBE PO PRN (14:00)
[2017-05-02] MEDS ORDERED: GLUCOSE 40% GEL 15 GM TUBE PO PRN (14:00)
[2017-05-02] MEDS ORDERED: MAGNESIUM HYDROXIDE SUSP 30 ML UDC PO PRN (14:00)
[2017-05-02] MEDS ORDERED: CETIRIZINE HCL 10 MG TAB PO PRN (14:00)
[2017-05-02 14:19] VITALS: O2SAT 96; BMI 35.2
[2017-05-02 14:30] VITALS: BP 145/76; PULSE 68; TEMP 36.6; O2SAT 99
--- NOTE | 2017-05-02 14:48 | History and Physical ---
History & Physical Date & Time of Service: May 02, 2017 at 14:07 Chief Complaint: Possible Cellulitis, Increase Of Fluid And Purple Primary Care Physician: Fernando Esquivel M.D. History of Present Illness Source: patient 81 y/o F c/o L LE swelling. Pt states that she has been having ongoing issues with LE swelling for a few months. She follows with Dr. Jacobson for this and has an appt with him for this Wednesday. Pt states she fell on Wednesday, purely mechanical fall after tripping. She fell on the L side of her body mainly and did hit her head. She came to the ED and had sutures placed above her L eye which they told her should come out in 7-10 days. Since that time, she has developed increased b/l L>R LE swelling. Her L LE is bruised and she started to have weeping from the anterior calf. She did not have scabs or skin lacerations on her LE. She states that the weeping started spontaneously. The only pain she has on her LE is related to the open areas. Pt takes lasix 80mg QD and spironolactone 50mg QD. She does not miss these doses. Pt states she has been working with Dr. Monson for ongoing gout flares for the last few months as well. They have been trying to wean pt off of steroids but this has been only marginally successful due to flares with attempts to further decrease dosing. Pt states she has been eating well. She lives alone, but her daughter has been cooking for her. Pt denies fever, SOB, chest pain, abd pain, n/v/c/d. Daughter is present and is requesting home health on d/c. Past Medical/Surgical History CHF Gout DM Hypothyroid HTN CKD III CVA 2008, on eliquis Family History Maternal side with several family members with "heart troubles" Father had cancer Social History Smoking Status: Never Smoker Alcohol Use: none Drug Use: none Housing status: lives alone Occupational Status: retired Immunizations History of Influenza Vaccine: Yes Influenza Vaccine Date: Jan 13, 2006 History of Tetanus Vaccine?: Yes History of Pneumococcal: Yes Pneumococcal Date: Jan 13, 2006 History of Hepatitis B Vaccine: No Multi-Drug Resistant Organisms History of MDRO: No Allergies Coded Allergies: Codeine (Verified Allergy, Mild, N/V, 05/02/17) Epinephrine (Verified Allergy, Mild, HEART RACING, 05/02/17) Avocado (Verified Allergy, Unknown, STOMACH ACHE AND DIARRHEA, 05/02/17) Home Medications Scheduled Apixaban (Eliquis), 2.5 MG PO BID Ascorbic Acid (Vitamin C), 1 TAB PO DAILY Calcium Carbonate (Calcium 600), 600 MG PO DAILY Cholecalciferol (Vitamin D3), 1,000 UNITS PO DAILY Cholestyramine (Prevalite), 0.5-1 PKT PO DAILY Diltiazem Hcl Ext Rel (Tiazac), 120 MG PO DAILY Febuxostat (Uloric), 40 MG PO DAILY Ferrous Gluconate (Ferrous Gluconate), 1 TAB PO DAILY Furosemide (Lasix), 40 MG PO BID Gabapentin (Gabapentin), 400 MG PO BID Insulin Glargine (Lantus), 35 UNITS SC BID Insulin Human Lispro (Humalog Kwikpen), 1 DOSE SC UD Levothyroxine Sodium (Synthroid), 100 MCG PO DAILY Loratadine (Claritin), 10 MG PO HS Losartan Potassium (Losartan Potassium), 25 MG PO DAILY Oxybutynin Chloride (Oxybutynin Chloride ER), 10 MG PO DAILY Spironolactone (Aldactone), 50 MG PO DAILY Scheduled PRN Betamethasone Dip (Betamethasone Dipropionat), 1 APPLN TOP DAILY PRN for RASH Cetirizine (Zyrtec), 10 MG PO DAILY PRN for ALLERGIES Review of Systems Pertinent positives and negatives reviewed in HPI--all others negative Physical Exam Vital Signs Date Time Temp Pulse Resp B/P (MAP) Pulse Ox O2 Delivery O2 Flow Rate FiO2 05/02/17 14:01 75 20 146/95 96 Room Air 05/02/17 12:15 74 20 144/85 98 Room Air 05/02/17 10:19 36.8 94 18 141/67 98 Room Air General Appearance: no apparent distress, + obese Head: normocephalic, + pertinent finding (L sided facial bruising, sutures in place above L eyebrow) Eyes: normal inspection, sclerae normal Respiratory/Chest: normal breath sounds, no respiratory distress Cardiovascular: regular rate, rhythm, normal peripheral pulses Abdomen/GI: non tender, soft Extremities/Musculoskelatal: no calf tenderness, + swelling (b/l L>R, 2+ pitting) Neurologic/Psych: alert, normal mood/affect, oriented x 3 Skin: warm/dry, + pertinent finding (redness and bruising on L anterior calf, normal temp, nonTTP, multiple areas of open and weeping ulcerations) Diagnostics Laboratory Results Results Past 24 Hours Test 05/02/17 11:00 05/02/17 11:10 05/02/17 11:11 Range/Units White Blood Count 10.99 4.8-10.8 K/uL Red Blood Count 4.12 4.2-5.4 M/uL Hemoglobin 12.6 12.0-16.0 g/dL Hematocrit 37.8 37-47 % Mean Corpuscular Volume 91.7 80-100 fL Mean Corpuscular Hemoglobin 30.6 25-34 pg Mean Corpuscular Hemoglobin Concent 33.3 32-36 g/dl Platelet Count 165 130-400 K/uL Mean Platelet Volume 9.5 7.4-10.4 fL Neutrophils (%) (Auto) 86.2 % Lymphocytes (%) (Auto) 6.6 % Monocytes (%) (Auto) 5.4 % Eosinophils (%) (Auto) 0.5 % Basophils (%) (Auto) 0.0 % Neutrophils # (Auto) 9.49 1.4-6.5 K/uL Lymphocytes # (Auto) 0.72 1.2-3.4 K/uL Monocytes # (Auto) 0.59 0.11-0.59 K/uL Eosinophils # (Auto) 0.05 0-0.5 K/uL Basophils # (Auto) 0.00 0-0.2 K/uL RDW Standard Deviation 47.7 36.4-46.3 fL RDW Coefficient of Variation 14.2 11.5-14.5 % Immature Granulocyte % (Auto) 1.3 % Immature Granulocyte # (Auto) 0.14 0.00-0.02 K/uL Prothrombin Time 10.3 9.0-12.0 SECONDS Prothromb Time International Ratio 1.0 0.9-1.1 Activated Partial Thromboplast Time 23.9 21.0-31.0 SECONDS Partial Thromboplastin Ratio 0.9 Sodium Level 133 136-145 mmol/L Potassium Level 4.4 3.5-5.1 mmol/L Chloride Level 101 98-107 mmol/L Carbon Dioxide Level 23 21-32 mmol/L Anion Gap 9.0 3-11 mmol/L Blood Urea Nitrogen 59 7-18 mg/dl Creatinine 1.50 0.60-1.20 mg/dl Estimated GFR () 37.7 Estimated GFR (Non- 32.6 BUN/Creatinine Ratio 39.4 10-20 Random Glucose 294 70-99 mg/dl Calcium Level 9.0 8.5-10.1 mg/dl Total Bilirubin 0.6 0.2-1 mg/dl Direct Bilirubin 0.2 0-0.2 mg/dl Aspartate Amino Transf (AST/SGOT) 17 15-37 U/L Alanine Aminotransferase (ALT/SGPT) 33 12-78 U/L Alkaline Phosphatase 73 45-117 U/L Pro-B-Type Natriuretic Peptide 2967 0-1800 pg/ml Total Protein 6.5 6.4-8.2 gm/dl Albumin 2.9 3.4-5.0 gm/dl Lipase 244 73-393 U/L Bedside Lactic Acid Venous 1.50 0.90-1.70 mmol/L Bedside Troponin I 0.060 0-0.045 ng/ml Microbiology Results 05/02/17 Blood Culture, Received Pending 05/02/17 Blood Culture, Received Pending Diagnostic Radiology CXR: small pleural effusion, neg for PNA Impression Assessment and Plan 81 y/o F who was admitted on 05/02 for CHF exacerbation. CHF exacerbation: in the setting of recent fall and ongoing steroid use Hx of CHF, on PO medications Had 80mg lasix and 50mg spironolactone PO WASTE ELIMINATION, additional 20mg IV lasix in ED CXR with small pleural effusion on the L BNP elevated Will hold on further lasix dosing until response is noted LE US pending, although DVT is unlikely given eliquis use Last ECHO was 2013 with EF 65-70%, repeat pending LE ulcerations: more consistent with pressure ulcerations from swelling than cellulitis in appearance Redness is more consistent with swelling and bruising and no increased skin temp. Hold on abx for now unless worsening redness or pain develops WCC pending Blood cx pending Elevated trop: likely related to recent fall given extensive bruising Serials pending CKD III: baseline cr is 1.5-1.8, stable DM: lantus + SSI PRN A1c pending Gout: continue home steroid dosing Has been having worsening swelling since steroid use, likely related to steroids however attempts to taper off have been unsuccessful HTN: stable, continue home meds Hypothyroid: TSH pending CVA hx: 2009, continue eliquis Other: Full code. Does not wish for prolonged mechanical life support or feeding tubes. Has a living will. DM diet Eliquis for DVT proph CM c/s for home health at d/c at request of family PT/OT pending Level of Care Telemetry Resuscitation Status FULL RESUSCITATION VTE Prophylaxis VTE Risk Assessment Done? Y/N: Yes Risk Level: Low
[2017-05-02] MEDS: INSULIN ASPART 100 UNITS/ML 3 ML PEN SC SCH ×2 (17:05→21:32)
--- NOTE | 2017-05-02 17:11 | DIAGNOSTIC IMAGING REPORT ---
BILATERAL LOWER EXTREMITY VENOUS DOPPLER CLINICAL HISTORY: LE swelling, bruising COMPARISON STUDY: No previous studies for comparison. TECHNIQUE: Sonography of the deep venous system of the bilateral lower extremities was performed. Compression and augmentation were evaluated. FINDINGS: The bilateral common femoral, superficial femoral and popliteal veins were compressible. Augmentation was normal. Flow was shown within the deep calf vessels. Lower extremity edema was noted bilaterally. Note was made of a 3.1 x 1.2 x 2.3 cm right popliteal cyst. IMPRESSION: 1. No evidence of deep venous thrombus within the bilateral lower extremities. 2. 3.1 x 1.2 x 2.3 cm right popliteal cyst. Electronically signed by: Ritesh Cobb M.D. 05/02/2017 5:10 PM Dictated Date/Time: 05/02/2017 5:09 PM
--- NOTE | 2017-05-02 17:35 | EMERGENCY ROOM VISIT NOTE ---
History Report prepared by Skyler: Kaushik Rodarte Under the Supervision of: Dr. Riki Salinas M.D. First contact with patient: 10:34 Chief Complaint: INFECTION Stated Complaint: POSSIBLE CELLULITIS, INCREASE OF FLUID AND PURPLE History of Present Illness The patient is a 81 year old female who presents to the Emergency Room with complaints of left leg cellulitis that began 6 days ago. The patient had a mechanical fall 6 days ago with lower extremity swelling and head strike. The daughter states that the site has been weeping. 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 The patient denies fevers, SOB, chest pain, urinary symptoms, back pain, and abdominal pain. The patient is currently taking Furosemide for her CHF and Prednisone for her gout (lower limbs and hands). She is also taking Eliquis. Of note, the patient has dropped a TV tray on her right foot which has been slow to heal. Source of History: patient, family Onset: 6 days ago Position: leg (left) Timing: constant Associated Symptoms: No fevers, No chest pain, No SOB, No abdominal pain, No back pain, No urinary symptoms Note: The patient has lower extremity neuropathy that is unchanged from baseline. Review of Systems See HPI for pertinent positives & negatives. A total of 10 systems reviewed and were otherwise negative. Past Medical & Surgical Medical Problems: (1) CHF (congestive heart failure) (2) Stroke Old medical records were reviewed. Nurse's notes were reviewed and I agree with. Social History Smoking Status: Never Smoker Alcohol Use: none Drug Use: none Occupation Status: retired Current/Historical Medications Scheduled Apixaban (Eliquis), 2.5 MG PO BID Ascorbic Acid (Vitamin C), 1 TAB PO DAILY Calcium Carbonate (Calcium 600), 600 MG PO DAILY Cholecalciferol (Vitamin D3), 1,000 UNITS PO DAILY Cholestyramine (Prevalite), 0.5-1 PKT PO DAILY Diltiazem Hcl Ext Rel (Tiazac), 120 MG PO DAILY Febuxostat (Uloric), 40 MG PO DAILY Ferrous Gluconate (Ferrous Gluconate), 1 TAB PO DAILY Furosemide (Lasix), 40 MG PO BID Gabapentin (Gabapentin), 400 MG PO BID Insulin Glargine (Lantus), 35 UNITS SC BID Insulin Human Lispro (Humalog Kwikpen), 1 DOSE SC UD Levothyroxine Sodium (Synthroid), 100 MCG PO DAILY Loratadine (Claritin), 10 MG PO HS Losartan Potassium (Losartan Potassium), 25 MG PO DAILY Oxybutynin Chloride (Oxybutynin Chloride ER), 10 MG PO DAILY Spironolactone (Aldactone), 50 MG PO DAILY Scheduled PRN Betamethasone Dip (Betamethasone Dipropionat), 1 APPLN TOP DAILY PRN for RASH Cetirizine (Zyrtec), 10 MG PO DAILY PRN for ALLERGIES Allergies Coded Allergies: Codeine (Verified Allergy, Mild, N/V, 05/02/17) Epinephrine (Verified Allergy, Mild, HEART RACING, 05/02/17) Avocado (Verified Allergy, Unknown, STOMACH ACHE AND DIARRHEA, 05/02/17) Physical Exam Vital Signs Date Time Temp Pulse Resp B/P (MAP) Pulse Ox O2 Delivery O2 Flow Rate FiO2 05/02/17 12:15 74 20 144/85 98 Room Air 05/02/17 10:19 36.8 94 18 141/67 98 Room Air Physical Exam General: Non-ill appearing elderly female in no acute distress. HEENT: Normal cephalic atraumatic. Pupils are equal round and reactive to light. Extraocular movements are intact. Oropharynx is pink with moist mucous membranes. No swelling of the mouth lips or tongue. Healing bruises on face. Neck: Supple with a midline trachea. No meningeal signs or stiffness, no JVD or bruits. No Stridor. Chest: Clear to auscultation bilaterally. No wheezes or rhonchi. No increased work of breathing. Heart: regular rate and rhythm. Abdomen: Soft nontender, nondistended without rebound guarding or rigidity. Extremities: No cyanosis clubbing. No calf tenderness or assymetry. Bilateral pitting edema. Palpable distal pulses. Small weeping from bobby with clear drainage. No redness. Spine/Back. Non tender to palpation. No CVA tenderness Skin: Good turgor without rashes. Neurologic exam: Cranial nerves two through 12 are intact. Motor and sensation are intact and symmetrical throughout. Medical Decision & Procedures ER Provider Diagnostic Interpretation: Radiology results as stated below per my review and radiologist interpretation: CHEST ONE VIEW PORTABLE CLINICAL HISTORY: Atypical chest pain COMPARISON STUDY: October 2013 FINDINGS: The heart is enlarged. There is no focal pulmonary consolidation. There is mild central vascular prominence. There is blunting of the left lateral costophrenic angle suggesting a small effusion.[ IMPRESSION: Cardiomegaly and suspected small left pleural effusion. No evidence of focal pulmonary consolidation Electronically signed by: Greg Gonzalez M.D. 05/02/2017 11:04 AM Dictated Date/Time: 05/02/2017 11:03 AM Laboratory Results 05/02/17 11:00 Red Blood Count 4.12, Mean Corpuscular Volume 91.7, Mean Corpuscular Hemoglobin 30.6, Mean Corpuscular Hemoglobin Concent 33.3, Mean Platelet Volume 9.5, Neutrophils (%) (Auto) 86.2, Lymphocytes (%) (Auto) 6.6, Monocytes (%) (Auto) 5.4, Eosinophils (%) (Auto) 0.5, Basophils (%) (Auto) 0.0, Neutrophils # (Auto) 9.49, Lymphocytes # (Auto) 0.72, Monocytes # (Auto) 0.59, Eosinophils # (Auto) 0.05, Basophils # (Auto) 0.00 05/02/17 11:00 Test 05/02/17 11:00 05/02/17 11:10 05/02/17 11:11 White Blood Count 10.99 K/uL (4.8-10.8) Red Blood Count 4.12 M/uL (4.2-5.4) Hemoglobin 12.6 g/dL (12.0-16.0) Hematocrit 37.8 % (37-47) Mean Corpuscular Volume 91.7 fL (80-100) Mean Corpuscular Hemoglobin 30.6 pg (25-34) Mean Corpuscular Hemoglobin Concent 33.3 g/dl (32-36) Platelet Count 165 K/uL (130-400) Mean Platelet Volume 9.5 fL (7.4-10.4) Neutrophils (%) (Auto) 86.2 % Lymphocytes (%) (Auto) 6.6 % Monocytes (%) (Auto) 5.4 % Eosinophils (%) (Auto) 0.5 % Basophils (%) (Auto) 0.0 % Neutrophils # (Auto) 9.49 K/uL (1.4-6.5) Lymphocytes # (Auto) 0.72 K/uL (1.2-3.4) Monocytes # (Auto) 0.59 K/uL (0.11-0.59) Eosinophils # (Auto) 0.05 K/uL (0-0.5) Basophils # (Auto) 0.00 K/uL (0-0.2) RDW Standard Deviation 47.7 fL (36.4-46.3) RDW Coefficient of Variation 14.2 % (11.5-14.5) Immature Granulocyte % (Auto) 1.3 % Immature Granulocyte # (Auto) 0.14 K/uL (0.00-0.02) Prothrombin Time 10.3 SECONDS (9.0-12.0) Prothromb Time International Ratio 1.0 (0.9-1.1) Activated Partial Thromboplast Time 23.9 SECONDS (21.0-31.0) Partial Thromboplastin Ratio 0.9 Anion Gap 9.0 mmol/L (3-11) Estimated GFR () 37.7 Estimated GFR (Non- 32.6 BUN/Creatinine Ratio 39.4 (10-20) Calcium Level 9.0 mg/dl (8.5-10.1) Total Bilirubin 0.6 mg/dl (0.2-1) Direct Bilirubin 0.2 mg/dl (0-0.2) Aspartate Amino Transf (AST/SGOT) 17 U/L (15-37) Alanine Aminotransferase (ALT/SGPT) 33 U/L (12-78) Alkaline Phosphatase 73 U/L (45-117) Pro-B-Type Natriuretic Peptide 2967 pg/ml (0-1800) Total Protein 6.5 gm/dl (6.4-8.2) Albumin 2.9 gm/dl (3.4-5.0) Lipase 244 U/L (73-393) Bedside Lactic Acid Venous 1.50 mmol/L (0.90-1.70) Bedside Troponin I 0.060 ng/ml (0-0.045) Laboratory studies as stated above per my review. Medications Administered Medications (Trade) Dose Ordered Sig/Ericka Route Start Time Stop Time Status Last Admin Dose Admin Furosemide (Lasix Inj) 20 mg NOW STAT IV 05/02/17 13:03 05/02/17 13:04 DC 05/02/17 14:17 20 MG ECG Per My Interpretation Indication: other (left leg cellulitis) Rate (beats per minute): 79 Rhythm: atrial fibrillation (low voltage) Findings: no acute ischemic change, other (poor R wave progression) Change: no significant change (10/29/2013) ED Course 1034: Past medical records reviewed. The patient was evaluated in room B12B, and a complete history and physical examination were performed. 1256: I checked on the patient and they are doing well. 1303: Lasix Inj, 20 mg, IV. 1308. I spoke with Dr. Chavez. Discussed the patient's case. The patient will be evaluated for further management. 1315: Upon reevaluation, the patient is doing well. I discussed the results and treatment plan with the patient. She verbalized agreement of the treatment plan. The patient will be evaluated for further management. Medical Decision Differential diagnoses includes cellulitis, CHF, bruise, electrolyte and metabolic abnormality, and compartment syndrome. This patient comes in as described above. She was placed in room B12. She fell recently and has bruising of her left leg .she has bilateral lower extremity edema. she is weeping in her left bobby. She has no evidence of neurovascular compromise the legs. She has no new falls. She has no chest pain or shortness of breath. IV access was established and blood work was obtained. BNP was elevated. EKG does not show anything to suggest acute cardiac event. At this point I do not think she likely is a cellulitis but more of a congestive heart failure component. She was given Lasix 20 mg IV. She does have some renal insufficiency although it looks slightly better than before. Her troponin is also mildly elevated. I do think she needs to be observed for further treatment and evaluation diuresis. I have consulted the [facility] hospitalist Medication Reconcilliation Current Medication List: was personally reviewed by me Blood Pressure Screening Patient's blood pressure: Elevated blood pressure Blood pressure disposition: Elevated BP felt to be situational Consults Time Called: 1306 Consulting Physician: Dr. Chavez Returned Call: [phone] Discussed the patient's case. The patient will be evaluated for further management. Impression Primary Impression: CHF (congestive heart failure) Additional Impression: Peripheral edema Scribe Attestation The scribe's documentation has been prepared under my direction and personally reviewed by me in its entirety. I confirm that the note above accurately reflects all work, treatment, procedures, and medical decision making performed by me. Departure Information Dispostion Being Evaluated By Hospitalist Referrals Fernando Esquivel M.D. (PCP) Patient Instructions My [facility] Problem Qualifiers
[2017-05-02] MEDS ORDERED: NURSING VERBAL MED ORDER ONE (18:45)
[2017-05-02 19:33] VITALS: BP 126/73; PULSE 71; TEMP 36.7; O2SAT 98
[2017-05-02] MEDS ORDERED: FUROSEMIDE 40 MG TAB PO SCH (21:00)
[2017-05-02] MEDS: GABAPENTIN 400 MG CAP PO SCH (21:16)
[2017-05-02] MEDS: APIXABAN 2.5 MG TAB PO SCH (21:16)
[2017-05-02] MEDS: LORATADINE 10 MG TAB PO SCH (21:16)
[2017-05-02] MEDS: FEBUXOSTAT 40 MG TAB PO SCH (21:16)
[2017-05-02] MEDS: INSULIN GLARGINE SOLOSTAR 100 UNITS/ML 3 ML PEN SC SCH (21:19)
[2017-05-02] MEDS: ACETAMINOPHEN 325 MG TAB PO PRN (23:02)
[2017-05-02 23:50] VITALS: BP 129/79; PULSE 93; TEMP 36.9; O2SAT 97
[2017-05-03 03:43] VITALS: BP 120/76; PULSE 75; TEMP 36.9; O2SAT 97
[2017-05-03] MEDS: LEVOTHYROXINE 100 MCG TAB PO SCH (06:24)
[2017-05-03 07:53] VITALS: BP 140/91; PULSE 98; TEMP 36.9; O2SAT 96
[2017-05-03] MEDS: INSULIN ASPART 100 UNITS/ML 3 ML PEN SC SCH ×4 (07:54→21:31)
--- NOTE | 2017-05-03 07:56 | Clinical Documentation Query ---
CLINICAL DOCUMENTATION QUERY 81 year old female who presents to the Emergency Room with complaints of left leg swelling and edema. H&P states patient as being in CHF exacerbation. It is also important to note that new changes in requirements for documentation of patient clinical severity include the diagnosis of heart failure. The medical record documentation is now expected to include definitive and explicit description of the patient's heart failure; vague terms such as "heart failure," ventricular dysfunction," and "CHF" may not fully capture the physician's intended level of severity. In your clinical opinion is this patient being managed for: ( ) Acute diastolic (Preserved EF) CHF ( ) Not Agree ( ) Other explanation of clinical findings (Please Explain) ( ) Unable to determine (Please Define) ( ) Need to Discuss The medical record reflects the following clinical findings, treatment, and risk factors. Clinical Indicators: ProBNAP 2967, Troponin's 0.060, 0.061. 0.056, + swelling (b/l L>R, 2+ pitting) Treatment: IV Lasix, telemetry, I/O's, daily weights, Echo Risk Factors: Age, HTN, CKD III, ?infection, steroid therapy. Please clarify and document your clinical opinion in the progress notes and discharge summary. Terms such as "probable", "suspected", "likely", "questionable", "possible", or "still to be ruled out" are acceptable. IF IN AGREEMENT, YOU MUST DOCUMENT ABOVE DIAGNOSTIC STATEMENT IN DAILY PROGRESS NOTES AND DISCHARGE SUMMARY. This document is not part of the patient's record. Thank You, Luciano Vu, RN [phone]
[2017-05-03] MEDS: ACETAMINOPHEN 325 MG TAB PO PRN ×2 (07:57→21:41)
[2017-05-03 08:03] LABS: CALCIUM 8.6 mg/dl (8.5-10.1); CREATININE 1.48 mg/dl (0.60-1.20); POTASSIUM 4.1 mmol/L (3.5-5.1)
[2017-05-03] MEDS ORDERED: FUROSEMIDE INJ 40 MG in SYRINGE 0 ML IV ONE (08:40)
[2017-05-03 08:41] LABS: HEMATOCRIT 34.2 % (37-47); HEMOGLOBIN 11.6 g/dL (12.0-16.0); MEAN CORPUSCULAR HEMOGLOBIN 30.9 pg (25-34); MEAN CORPUSCULAR HGB CONC 33.9 g/dl (32-36); MEAN PLATELET VOLUME 9.3 fL (7.4-10.4); PLATELET COUNT 162 K/uL (130-400); RED CELL DISTRIBUTION WIDTH CV 14.3 % (11.5-14.5); WHITE BLOOD COUNT 9.38 K/uL (4.8-10.8)
[2017-05-03] MEDS ORDERED: DILTIAZEM HCL 120 MG EXT REL CAP PO SCH (09:00)
[2017-05-03] MEDS ORDERED: FEBUXOSTAT 40 MG TAB PO SCH (09:00)
[2017-05-03] MEDS ORDERED: FUROSEMIDE 40 MG TAB PO SCH (09:00)
--- NOTE | 2017-05-03 09:02 | ECHOCARDIOGRAM REPORT ---
*NOTICE TO RECEIVING LIBERTARIAN AGENCY This information is strictly Confidential and protected under [place] law. [place] law prohibits you from making any further disclosure of this information unless further disclosure is expressly permitted by the written consent of the person to whom it pertains or is authorized by law. A general authorization for the release of medical or other information is not sufficient for this purpose. Hospital accepts no responsibility if the information is made available to any other person, INCLUDING THE PATIENT. Interpretation Summary * Name: MALATHI SOUZA Study Date: 05/02/2017 03:00 PM BP: 145/76 mmHg * Patient Location: C.2E\S\E210\S\1 HR: 106 * : 1935 (M/d/yyyy) Gender: Female Height: 65 in * Age: 81 yrs Ethnicity: CA Weight: 200 lb * Ordering Physician: Niecy Ng * Referring Physician: Self, Referred * Performed By: Airam Alvarez RCS * * Reason For Study: CHF * BSA: 2.0 m2 * Normal biventricular systolic function. * Mild concentric left ventricular hypertrophy. * Mild biatrial dilatation. * Moderate mitral and tricuspid regurgitation. * Moderately elevated estimated right ventricular systolic pressure. * -- Conclusions -- * Aortic valve sclerosis mild, without significant aortic valvular stenosis. Procedure Details * A complete two-dimensional transthoracic echocardiogram was performed (2D, M-mode, Doppler and color flow Doppler). * A contrast injection of Definity was performed to improve assessment of LV function. * Contrast was injected into an intravenous site in the right arm. * One vial of Definity ultrasound contrast was diluted in normal saline to a total volume of 10 ml. A total of '2' ml of solution was administered during imaging. * Lot # [id number] of Definity utilized for procedure. * Expiration date 1 APR 26. * The attending nurse who injected the contrast agent was LLUVIA NEUMANN, BONITA. Left Ventricle * The left ventricle is normal in size. * There is mild concentric left ventricular hypertrophy. * Left ventricular systolic function is normal. * Ejection Fraction = 65-70%. * The left ventricular wall motion is normal. Right Ventricle * The right ventricle is normal in size and function. Atria * The left atrium is mildly dilated. * The right atrium is mildly dilated. Mitral Valve * Calcified mitral apparatus. * There is no mitral valve stenosis. * There is moderate mitral regurgitation. Tricuspid Valve * The tricuspid valve is not well visualized. * There is no tricuspid stenosis. * There is moderate tricuspid regurgitation. * Right ventricular systolic pressure is elevated at 40-50mmHg. Aortic Valve * Aortic valve sclerosis mild, without significant aortic valvular stenosis. * No aortic regurgitation is present. Pulmonic Valve * The pulmonic valve is not well visualized. * There is no pulmonic valvular stenosis. * There is no pulmonic valvular regurgitation. Great Vessels * The aortic root is normal size. * There is aortic root sclerosis/calcification. Pericardium/Pleural * There is no pericardial effusion. Great Vessels * Inferior vena cava poorly visualized MMode 2D Measurements and Calculations IVSd 1.3 cm IVSs 1.6 cm LVIDd 4.1 cm LVIDs 2.4 cm LVPWd 1.2 cm LVPWs 1.2 cm IVS/LVPW 1.1 FS 41.9 % EDV(Teich) 75.5 ml ESV(Teich) 20.2 ml EF(Teich) 73.3 % EDV(cubed) 70.4 ml ESV(cubed) 13.8 ml EF(cubed) 80.3 % % IVS thick 21.7 % % LVPW thick 5.9 % LV mass(C)d 183.1 grams LV mass(C)dI 92.6 grams/m\S\2 LV mass(C)s 109.1 grams LV mass(C)sI 55.2 grams/m\S\2 SV(Teich) 55.3 ml SI(Teich) 28.0 ml/m\S\2 SV(cubed) 56.6 ml SI(cubed) 28.6 ml/m\S\2 Ao root diam 2.6 cm Ao root area 5.5 cm\S\2 LA dimension 4.6 cm LA/Ao 1.8 LVOT diam 1.8 cm LVOT area 2.7 cm\S\2 LVAd ap4 21.4 cm\S\2 LVLd ap4 5.9 cm EDV(MOD-sp4) 67.5 ml EDV(sp4-el) 66.1 ml LVAs ap4 12.6 cm\S\2 LVLs ap4 5.4 cm ESV(MOD-sp4) 24.9 ml ESV(sp4-el) 25.2 ml EF(MOD-sp4) 63.0 % EF(sp4-el) 61.8 % LVAd ap2 29.3 cm\S\2 LVLd ap2 6.9 cm EDV(MOD-sp2) 101.3 ml EDV(sp2-el) 105.0 ml LVAs ap2 15.1 cm\S\2 LVLs ap2 5.6 cm ESV(MOD-sp2) 34.1 ml ESV(sp2-el) 34.5 ml EF(MOD-sp2) 66.3 % EF(sp2-el) 67.2 % LVLd %diff 14.9 % EDV(MOD-bp) 88.5 ml LVLs %diff 4.1 % ESV(MOD-bp) 29.6 ml EF(MOD-bp) 66.5 % SV(MOD-sp4) 42.5 ml SI(MOD-sp4) 21.5 ml/m\S\2 SV(MOD-sp2) 67.2 ml SI(MOD-sp2) 34.0 ml/m\S\2 SV(MOD-bp) 58.9 ml SI(MOD-bp) 29.8 ml/m\S\2 SV(sp4-el) 40.9 ml SI(sp4-el) 20.7 ml/m\S\2 SV(sp2-el) 70.5 ml SI(sp2-el) 35.7 ml/m\S\2 Doppler Measurements and Calculations MV E max james 124.6 cm/sec MV P1/2t max james 157.9 cm/sec MV P1/2t 96.8 msec MVA(P1/2t) 2.3 cm\S\2 MV dec slope 477.7 cm/sec\S\2 MV dec time 0.26 sec Ao V2 max 164.9 cm/sec Ao max PG 10.9 mmHg MR max james 502.8 cm/sec MR max PG 101.1 mmHg PA V2 max 102.7 cm/sec PA max PG 4.2 mmHg TR max james 308.4 cm/sec
[2017-05-03] MEDS: CALCIUM CARBONATE 1250MG TAB PO SCH (09:35)
[2017-05-03] MEDS: ASCORBIC ACID 500 MG TAB PO SCH (09:35)
[2017-05-03] MEDS: LOSARTAN POTASSIUM 25 MG TAB PO SCH (09:36)
[2017-05-03] MEDS: CHOLECALCIFEROL 1000 INTER.UNIT TAB PO SCH (09:37)
[2017-05-03 09:38] LABS: HEMOGLOBIN A1C 10.9 % (4.5-5.6)
[2017-05-03] MEDS: GABAPENTIN 400 MG CAP PO SCH ×2 (09:38→21:32)
[2017-05-03] MEDS: OXYBUTYNIN CHLORIDE 5 MG TABCR PO SCH (09:38)
[2017-05-03] MEDS: SPIRONOLACTONE 25 MG TAB PO SCH (09:39)
[2017-05-03] MEDS: APIXABAN 2.5 MG TAB PO SCH ×2 (09:39→21:32)
[2017-05-03] MEDS: FERROUS GLUCONATE 324 MG TAB PO SCH (09:39)
[2017-05-03] MEDS: INSULIN GLARGINE SOLOSTAR 100 UNITS/ML 3 ML PEN SC SCH (09:43)
[2017-05-03] MEDS ORDERED: MDR4 PO (11:01)
--- NOTE | 2017-05-03 11:09 | Hospitalist Progress Note ---
Hospitalist Progress Note Date of Service May 03, 2017. (Janki Ruth ., PAULC) Subjective Pt evaluation today including: conversation w/ patient, physical exam, chart review, lab review, review of inpatient medication list Pain: 2/10 aching LLE pain PO Intake: Tolerating PO diet Voiding: no voiding problems Patient reports feeling well. She does complain of a 2/10 aching pain in her LLE that is relieved with Tylenol. She denies states her LE swelling is unchanged. She denies any SOB. The patient denies fevers, chills, sweats, chest pain, palpitations, claudication, cough, wheezing, shortness of breath, nausea, vomiting, abdominal pain, dysuria, hematuria, urinary retention, paralysis, weakness, numbness and tingling. Additional Comments: See HPI for pertinent positives and negatives. All other systems reviewed and negative. (Janki Ruth ., TALI-C) Objective Vital Signs Date Time Temp Pulse Resp B/P (MAP) Pulse Ox O2 Delivery O2 Flow Rate FiO2 05/03/17 08:00 Room Air 05/03/17 07:53 36.9 98 22 140/91 (107) 96 Room Air 05/03/17 04:00 Room Air 05/03/17 03:43 36.9 75 19 120/76 (91) 97 Room Air 05/03/17 00:00 Room Air 05/02/17 23:50 36.9 93 18 129/79 (96) 97 Room Air 05/02/17 20:00 Room Air 05/02/17 19:33 36.7 71 20 126/73 (90) 98 Room Air 05/02/17 16:00 Room Air 05/02/17 14:30 36.6 68 16 145/76 (99) 99 Room Air 05/02/17 14:19 96 Room Air 05/02/17 14:01 75 20 146/95 96 Room Air 05/02/17 12:15 74 20 144/85 98 Room Air (Janki Ruth, TALI-C) Physical Exam Notes: General appearance: +Obese. Well-developed, well-nourished, no apparent distress Head: +Ecchymoses across left side of face w/healing superficial abrasions. Normocephalic Eyes: Normal inspection, PERRL, EOMI ENT: Normal ENT inspection, hearing grossly normal, pharynx normal Neck: Supple, no JVD, trachea midline Respiratory/Chest: +Decreased breath sounds in bases. Lungs clear to auscultation, no respiratory distress Cardiovascular: +Irregularly irregular, rate controlled. No gallop, no murmur Abdomen/GI: Normal bowel sounds, non-tender, soft Extremities/Musculoskeletal: +2+ pitting edema. LLE wrapped in gauze. Small superficial wounds w/minimal drainage. No calf tenderness Neurological/Psych: Alert, normal mood/affect, oriented x 3 Skin: +Ecchymoses left side of face and LLE. Normal color, warm/dry, no rash (Janki Ruth, BO) Laboratory Results Last 24 Hours Test 05/02/17 11:10 05/02/17 11:11 05/02/17 15:52 05/02/17 20:07 Bedside Lactic Acid Venous 1.50 mmol/L Bedside Troponin I 0.060 ng/ml Bedside Glucose 296 mg/dl Troponin I 0.056 ng/ml Thyroid Stimulating Hormone (TSH) 2.210 uIu/ml Test 05/02/17 20:17 05/03/17 01:48 05/03/17 06:34 05/03/17 07:07 Bedside Glucose 214 mg/dl 73 mg/dl Troponin I 0.061 ng/ml White Blood Count 9.38 K/uL Red Blood Count 3.76 M/uL Hemoglobin 11.6 g/dL Hematocrit 34.2 % Mean Corpuscular Volume 91.0 fL Mean Corpuscular Hemoglobin 30.9 pg Mean Corpuscular Hemoglobin Concent 33.9 g/dl RDW Standard Deviation 47.0 fL RDW Coefficient of Variation 14.3 % Platelet Count 162 K/uL Mean Platelet Volume 9.3 fL Sodium Level 139 mmol/L Potassium Level 4.1 mmol/L Chloride Level 105 mmol/L Carbon Dioxide Level 26 mmol/L Anion Gap 8.0 mmol/L Blood Urea Nitrogen 55 mg/dl Creatinine 1.48 mg/dl Est Creatinine Clear Calc Drug Dose 34.0 ml/min Estimated GFR () 38.4 Estimated GFR (Non- 33.1 BUN/Creatinine Ratio 37.4 Random Glucose 92 mg/dl Estimated Average Glucose 266 mg/dl Hemoglobin A1c 10.9 % Calcium Level 8.6 mg/dl Test 05/03/17 09:59 Troponin I 0.064 ng/ml (Janki Ruth ., PA-C) Diagnostic Results Reviewed the following studies and agree with interpretation as follows: BILATERAL LOWER EXTREMITY VENOUS DOPPLER CLINICAL HISTORY: LE swelling, bruising COMPARISON STUDY: No previous studies for comparison. TECHNIQUE: Sonography of the deep venous system of the bilateral lower extremities was performed. Compression and augmentation were evaluated. FINDINGS: The bilateral common femoral, superficial femoral and popliteal veins were compressible. Augmentation was normal. Flow was shown within the deep calf vessels. Lower extremity edema was noted bilaterally. Note was made of a 3.1 x 1.2 x 2.3 cm right popliteal cyst. IMPRESSION: 1. No evidence of deep venous thrombus within the bilateral lower extremities. 2. 3.1 x 1.2 x 2.3 cm right popliteal cyst. (Janki Ruth ., PA-C) Assessment and Plan 81 y/o female with diastolic CHF, a-fib, HTN, h/o CVA, DM II, CKD stage III. hypothyroidism, and gout who was admitted on 05/02 with increased lower extremity edema and mechanical fall. Acute on chronic diastolic heart failure--stable -Admit to telemetry. No acute events overnight. Pt in a-fib with HR 70s-80s -Daily weights, strict I's & O's -Lasix 40 mg IV x1 -Repeat echo shows LVEF 65-70%, moderate mitral regurg, moderate tricuspid regurg. Moderate elevated RSVP -Cardiology consulted, appreciate recs -Continue losartan, spironolactone Lower extremity edema L>R--following fall on left side, unlikely cellulitis -Doppler negative for DVT -Wound care nurse consulted -Blood cultures pending -Diltiazem d/c'd in case contributing per cardiology Elevated trop--stable, likely due to recent fall -Troponin 0.056-->0.061-->0.064 -Check one more troponin tomorrow am HTN, a-fib--stable -Diltiazem d/c'd per cardio, start Lopressor 25 mg PO BID instead -Continue losartan 25 mg PO qd, Eliquis CKD III: baseline cr is 1.5-1.8--stable -Creatinine at baseline DM II--HgbA1c 10.9 on 05/03 -Spoke with religious educator, recommended lowering nighttime Lantus by ~10% due to low BSG in morning. Recommends decreasing Lantus and increasing Humalog for outpatient -Continue Lantus 35 units SC qam -Decrease Lantus 30 units SC hs -Insulin sliding scale -Check BSGs q ac and qhs Gout -Continue Medrol 4 mg PO qd, Uloric Hypothyroid--stable -TSH WNL -Continue Synthroid 100 mcg PO qd DVT prophylaxis -Eliquis Code Status -Level I, FULL RESUSCITATION STATUS (Janki Ruth ., PA-C) Attending Note & Attestation: Pt seen/examined, chart reviewed, care plan d/w PA Janki Ruth. I agree w/ the vidal components of her documentation. Pt c/o LLE pain from "the knee on down." She denies any cough or dyspnea. She has worsening LLE pain w/ ambulation. She doesn't think the left knee "is from my gout." VSS no fever o2 sats wnl gen - nad neck - no obvious JVD heart - irregular,s1, s2 lungs - course BS b/l but no definitive rales abd - soft ext - 2+ pitting edema on right, 2-3+ on left musculo - left knee effusion, warm to touch (not hot), tender to touch and with passive ROM; there is pain over the tibial plateau skin - extensive ecchymoses on left face, left arm, left leg with ecchymoses on left leg extending from the knee on down to the left foot multip;e tiny skin openings on left bobby covered w/ dressing; no overt cellulitisi TSH noted to be normal other labs acceptable A/P: edema - possibly venous insuff +/- due to cardizem +/- fluid retention from chronic steroids for gout; cardiology does not feel she is in decompensated CHF. d/c cardizem; change to BB. cont her diuretics. left knee pain - due to recent trauma? gout? check knee x-rays, r/o acute fracture. consider arthrocentesis. left distal leg pain - repeat her tib-fib x-rays; k-pad to this area due to the extent of the ecchymoses & swelling. Sudheer Downs MD (Sudheer Downs MD)
[2017-05-03] MEDS ORDERED: METHYLPREDNISOLONE 4 MG TAB PO ONE (11:15)
[2017-05-03] MEDS: CHOLESTYRAMINE LIGHT 4 GM PKT PO SCH (11:17)
[2017-05-03 12:05] VITALS: BP 146/91; PULSE 112; TEMP 36.8; O2SAT 97
--- NOTE | 2017-05-03 12:46 | Clinical Documentation Query ---
CLINICAL DOCUMENTATION QUERY 81 year old female who presents to the Emergency Room with complaints of left leg swelling and edema. H&P states patient as being in CHF exacerbation. It is also important to note that new changes in requirements for documentation of patient clinical severity include the diagnosis of heart failure. The medical record documentation is now expected to include definitive and explicit description of the patient's heart failure; vague terms such as "heart failure," ventricular dysfunction," and "CHF" may not fully capture the physician's intended level of severity. In your clinical opinion is this patient being managed for: ( ) Acute diastolic (Preserved EF) CHF ( x ) Not Agree. Peripheral edema, not acute CHF ( ) Other explanation of clinical findings (Please Explain) ( ) Unable to determine (Please Define) ( ) Need to Discuss The medical record reflects the following clinical findings, treatment, and risk factors. Clinical Indicators: ProBNAP 2967, Troponin's 0.060, 0.061. 0.056, + swelling (b/l L>R, 2+ pitting) Treatment: IV Lasix, telemetry, I/O's, daily weights, Echo Risk Factors: Age, HTN, CKD III, ?infection, steroid therapy. Please clarify and document your clinical opinion in the progress notes and discharge summary. Terms such as "probable", "suspected", "likely", "questionable", "possible", or "still to be ruled out" are acceptable. IF IN AGREEMENT, YOU MUST DOCUMENT ABOVE DIAGNOSTIC STATEMENT IN DAILY PROGRESS NOTES AND DISCHARGE SUMMARY. This document is not part of the patient's record. Thank You, Luciano Vu, BONITA [phone]
[2017-05-03 15:09] VITALS: BP 108/67; PULSE 71; TEMP 36.5; O2SAT 99
[2017-05-03 15:29] VITALS: Ht 165.1 cm; Wt 92.0 kg
--- NOTE | 2017-05-03 17:48 | DIAGNOSTIC IMAGING REPORT ---
L KNEE 3 VIEWS CLINICAL HISTORY: Left knee pain. COMPARISON: 04/26/2017 DISCUSSION: The bones are osteopenic. No fractures or dislocations are visualized. There are vascular calcifications present. There are mild degenerative changes most pronounced within the patellofemoral joint. IMPRESSION: No fractures identified. Electronically signed by: Greg Gonzalez M.D. 05/03/2017 5:46 PM Dictated Date/Time: 05/03/2017 5:46 PM
--- NOTE | 2017-05-03 17:49 | DIAGNOSTIC IMAGING REPORT ---
L TIBIA/FIBULA 2 VIEWS ROUTINE CLINICAL HISTORY: Left lower leg pain status post trauma COMPARISON: 04/26/2017 DISCUSSION: No fractures or dislocations are visualized. There are vascular calcifications present. IMPRESSION: No fractures identified. Electronically signed by: Greg Gonzalez M.D. 05/03/2017 5:47 PM Dictated Date/Time: 05/03/2017 5:47 PM
[2017-05-03 20:05] VITALS: BP 155/66; PULSE 83; TEMP 36.8; O2SAT 95
[2017-05-03] MEDS ORDERED: INSULIN GLARGINE SOLOSTAR 100 UNITS/ML 3 ML PEN SC SCH (21:00)
[2017-05-03] MEDS: FEBUXOSTAT 40 MG TAB PO SCH (21:31)
[2017-05-03] MEDS: LORATADINE 10 MG TAB PO SCH (21:32)
[2017-05-03] MEDS: METOPROLOL TARTRATE 25 MG TAB PO SCH (21:32)
[2017-05-03 23:48] VITALS: BP 119/79; PULSE 62; TEMP 37; O2SAT 97
[2017-05-04] VITALS (7 sets, daily range): BP systolic 132–142; BP diastolic 62–92; PULSE 70–107; TEMP 36.4–37; O2SAT 96–98
--- NOTE | 2017-05-04 03:56 | CARDIOLOGY CONSULTATION ---
DATE OF CONSULTATION: 05/03/2017 PRIMARY PHYSICIAN: Fernnado Esquivel MD ATTENDING AND REFERRING PHYSICIAN: Sudheer Downs MD CONSULTING PHYSICIAN: Erik Jacobson Jr MD HISTORY OF PRESENT ILLNESS: The patient is an 81-year-old white female with a longstanding history of chronic atrial fibrillation; history of CVA in 2007, which was felt to be secondary to a thromboembolic event from atrial fibrillation. She also has a history of congestive heart failure secondary to left ventricular diastolic dysfunction. A prior cardiac catheterization performed in 2006 revealed normal coronary arteries. She additionally has a history of chronic lower extremity edema, dyslipidemia, hypertension, and type 2 diabetes mellitus. The patient has previously been treated with metoprolol and diltiazem for ventricular rate control. In December 2013, while visiting in [place], she had a mechanical fall resulting in a fracture of her left humerus. While hospitalized, she was seen by beef cattle farm worker who discontinued her metoprolol. She reported that she had had heart rate in the 40s. The patient has had vascular studies to evaluate her peripheral edema. Lower extremity venous duplex evaluation in November 2016 revealed a dilated right greater saphenous vein with reflux. Right SSV dilated with reflux. Left greater saphenous vein dilated and showed reflux. Left SSV dilated and without reflux. No evidence of deep venous thrombosis or superficial venous thrombosis. It was felt that both the right GSV and SSV and the left GSV were amenable to undergoing radiofrequency venous ablation. The patient apparently declined to have this procedure performed. Although she has a chronic history of peripheral edema, she feels that it has worsened over the past 6 months. Of note is that over the past 6 months, she has frequently been on prednisone to control her gout. In the past, she states she was on colchicine, this was discontinued because of renal insufficiency. Since then, she has had multiple flareups of her gout, requiring prednisone. On 04/26/2017, patient had a mechanical fall in the parking lot outside of the [facility] offices. This resulted in a deep laceration above her left eye. She was sent to the Emergency Department for evaluation and treatment. The wound about her left eye was sutured. She had multiple imaging studies performed including x-rays of her extremities which excluded any acute fracture. Cervical CT and head CT revealed no acute abnormalities. She was noted to have markedly elevated glucose, this was treated in the Emergency Department. She was subsequently discharged home. In the day prior to this admission, patient had developed discoloration in her legs. She had also complained of "weeping of fluid" from her left anterior calf. She had been compliant with her normal diuretic regimen which consists of furosemide 80 mg daily, and spironolactone 50 mg daily. She came to the Emergency Department on 05/02/2017 for evaluation. She was subsequently admitted to telemetry unit. She denies any dyspnea with her normal activities. No dyspnea at rest. No orthopnea or PND. No palpitations, lightheadedness, or syncope. Mild tenderness in her left face on palpation. Otherwise, she denies any pain in her face. No complaints of leg pain this morning. She states there has been no significant change in her peripheral edema since admission. She states that she declined to undergo radiofrequency ablation procedures of the veins in her legs because her [id number] who is a cardiac nurse told her that she might have impaired healing from this procedure, this was because she has diabetes mellitus and diabetic peripheral neuropathy. In addition to the above, patient denies any acute cerebrovascular complaints. No pulmonary, GI, or urinary complaints. PAST MEDICAL HISTORY: 1. Chronic atrial fibrillation. 2. Cerebrovascular disease. 3. Nonalcoholic cirrhosis. 4. Asthma. 5. Dyslipidemia. 6. Hypertension. 7. History of diastolic congestive heart failure. 8. Hypothyroidism. 9. Diabetic peripheral neuropathy. 10. Proteinuria. 11. Chronic kidney disease. 12. Type 2 diabetes mellitus. 13. Vitamin D deficiency. 14. History of sleep apnea. 15. History of cholecystitis and cholelithiasis. Subsequent laparoscopic cholecystectomy. 16. History of pleural effusions. PAST SURGICAL HISTORY: 1. Status post laparoscopic cholecystectomy. 2. Status post hysterectomy. FAMILY HISTORY: History of coronary artery disease in her mother. Colon cancer in her father. SOCIAL HISTORY: The patient has never smoked cigarettes. Occasional use of alcohol. She is single. She lives alone in [place], [place]. CURRENT MEDICATIONS: When patient was seen by me this morning included methylprednisolone 4 mg daily, diltiazem CD 120 mg daily, cholestyramine 4 grams p.o. q. 24 hours, vitamin C 500 mg daily, vitamin D 1000 units daily, ferrous gluconate 324 mg daily, losartan 25 mg daily, spironolactone 50 mg daily, calcium carbonate 1250 mg daily, Ditropan 10 mg daily, levothyroxine 100 mcg daily, Eliquis 2.5 mg b.i.d., gabapentin 400 mg b.i.d., Lantus insulin 35 units subQ b.i.d., Claritin 10 mg at bedtime, Uloric 40 mg q.p.m., NovoLog sliding scale insulin, and several p.r.n. medications. ALLERGIES AND ADVERSE DRUG REACTIONS: CODEINE, EPINEPHRINE, AND ALSO ALLOPURINOL. HISTORY OF ADVERSE REACTION TO AVOCADO. ADDENDUM TO PAST MEDICAL HISTORY: 1. History of anemia. 2. History of decreased mental status in the setting of elevated ammonia levels. 3. Hepatic encephalopathy, successful treatment with lactulose. PHYSICAL EXAMINATION: VITAL SIGNS: This morning with oral temperature 36.9, pulse 98, blood pressure 140/91, pulse oximetry room air 96%. She was sitting up in her bed. No distress. HEAD AND FACE: Ecchymoses left side of face. Healing wound above her left eye. EYES: Pupils equal and round. Anicteric. Conjunctivae normal. LUNGS: Normal respiratory effort. No rales or wheezes. NECK: Jugular venous pressure less than 7 cm. Carotids 2/2 bilaterally. Normal upstroke. No bruits. ABDOMEN: Soft. Nontender. No palpable masses or organomegaly. No bruits. HEART: PMI normal. No lifts or heaves. Irregularly irregular rhythm. No murmur. No gallop or rub. EXTREMITIES: 2+ bilateral lower leg edema. Left lower leg bandaged. No cyanosis or clubbing. NEUROLOGIC: Alert and oriented x3. Motor grossly intact. PSYCHIATRIC: Affect is normal. DIAGNOSTIC DATA: Electrocardiogram performed on 05/02/2017 and reviewed by me revealed atrial fibrillation with ventricular rate 79 beats per minute, low QRS voltage. Chest x-ray performed on 05/02/2017 and reviewed by me showed possible small left pleural effusion. No evidence of pulmonary vascular congestion. Venous ultrasound 05/02/2017 of both legs without evidence of deep venous thrombosis. LABORATORY DATA: Today was WBC 9.38, hemoglobin 11.6, hematocrit 34.2, platelet count 162. INR yesterday 1.0 with PTT 23.9. Metabolic profile today with sodium 139, potassium 4.1, chloride 105, carbon dioxide 26, BUN 55, creatinine 1.48, random glucose 92. Hemoglobin A1c today 10.9. Troponin I's have been 0.056, 0.061, and 0.064. Pro-B natriuretic peptide yesterday was 2967. BUN and creatinine yesterday were 59 and 1.50. Echocardiogram performed yesterday and reviewed by me showed normal to hyperdynamic left ventricular systolic function. Mild concentric LVH. Mild biatrial dilatation. Moderate mitral and tricuspid regurgitation. Mildly elevated estimated right ventricular systolic pressure of 48-50 mmHg. Normal right ventricular size. ASSESSMENT: 1. Chronic atrial fibrillation. 2. Remote history of cerebrovascular accident secondary to probable thromboembolic event from atrial fibrillation. 3. History of left ventricular diastolic heart failure. No current signs or symptoms suggestive of left-sided heart failure/pulmonary vascular congestion. She denies any orthopnea. She has no paroxysmal nocturnal dyspnea recently. She denies any dyspnea recently with her normal activities. No dyspnea at rest. Normal oxygen saturation on room air. No evidence of significant pulmonary vascular congestion on chest x-ray. I do not feel patient currently has congestive heart failure. 4. Chronic peripheral edema, worsened over the past 6 months. The peripheral edema is multifactorial. She has proven reflux in the veins of both legs, this would predispose her to significant peripheral edema. The diltiazem therapy which she was on could also exacerbate or cause peripheral edema. She has noted an increase in her peripheral edema over the past 6 months. She has been on prednisone for much of the past 6 months, this is also likely contributing to the increased peripheral edema. 5. Chronic kidney disease. 6. Mildly elevated troponin I's. Normal coronary arteries on prior cardiac catheterization. Electrocardiogram without any ischemic changes. She has no anginal symptoms. She has no segmental wall motion abnormalities in her left ventricle on echocardiography. Suspect that the mild troponin elevation is secondary to a combination of demand myocardial ischemia as well as her renal insufficiency. 7. History of nonalcoholic hepatic disease. Cirrhosis. Current AST, ALT and total bilirubin are normal. Her serum albumin is decreased to 2.9. Hypoalbuminemia would also contribute to the peripheral edema. RECOMMENDATIONS: 1. Discontinue diltiazem. 2. Start beta cezar therapy with metoprolol tartrate 25 mg b.i.d. Adjust dose as necessary for too slow of a ventricular response to atrial fibrillation or inadequate control of the ventricular response. Ultimately, she can be switched to metoprolol succinate ER. 3. Would be cautious with intravenous diuretics. These may not have any significant effect on improving her peripheral edema. They could predispose her to intravascular volume depletion which could worsen her renal function. Would monitor her renal function closely. If she does tolerate the diuretics without worsening her renal function, could continue with them. 4. Ultimately, the patient would derive benefit from a radiofrequency ablation of her diseased veins which have reflux. 5. Would make her diagnosis on this admission peripheral edema, would change this from the diagnosis of congestive heart failure. Although, patient has left ventricular diastolic dysfunction, this would not cause peripheral edema. She has no evidence of pulmonary vascular congestion. Her right ventricular systolic function is normal. 6. Long-term anticoagulation. The patient's case was discussed by me with Dr. Downs this morning. Thank you for asking us to see this patient in cardiology consultation.
[2017-05-04 06:39] LABS: HEMATOCRIT 33.8 % (37-47); HEMOGLOBIN 11.5 g/dL (12.0-16.0); MEAN CELL VOLUME 90.9 fL (80-100); MEAN CORPUSCULAR HEMOGLOBIN 30.9 pg (25-34); MEAN PLATELET VOLUME 9.1 fL (7.4-10.4); PLATELET COUNT 158 K/uL (130-400); RED CELL DISTRIBUTION WIDTH CV 14.2 % (11.5-14.5); RED CELL DISTRIBUTION WIDTH SD 47.3 fL (36.4-46.3); WHITE BLOOD COUNT 10.62 K/uL (4.8-10.8)
[2017-05-04 07:02] LABS: CALCIUM 8.1 mg/dl (8.5-10.1); CREATININE 1.74 mg/dl (0.60-1.20); POTASSIUM 4.1 mmol/L (3.5-5.1)
[2017-05-04] MEDS: OXYBUTYNIN CHLORIDE 5 MG TABCR PO SCH (07:45)
[2017-05-04] MEDS: FERROUS GLUCONATE 324 MG TAB PO SCH (07:45)
[2017-05-04] MEDS: APIXABAN 2.5 MG TAB PO SCH (07:45)
[2017-05-04] MEDS: SPIRONOLACTONE 25 MG TAB PO SCH (07:45)
[2017-05-04] MEDS: LOSARTAN POTASSIUM 25 MG TAB PO SCH (07:45)
[2017-05-04] MEDS: LEVOTHYROXINE 100 MCG TAB PO SCH (07:45)
[2017-05-04] MEDS: GABAPENTIN 400 MG CAP PO SCH (07:46)
[2017-05-04] MEDS: CHOLECALCIFEROL 1000 INTER.UNIT TAB PO SCH (07:46)
[2017-05-04] MEDS: ASCORBIC ACID 500 MG TAB PO SCH (07:46)
[2017-05-04] MEDS: METOPROLOL TARTRATE 25 MG TAB PO SCH (07:46)
[2017-05-04] MEDS: CALCIUM CARBONATE 1250MG TAB PO SCH (07:46)
[2017-05-04] MEDS: INSULIN ASPART 100 UNITS/ML 3 ML PEN SC SCH ×2 (07:53→12:21)
[2017-05-04] MEDS ORDERED: INSULIN GLARGINE SOLOSTAR 100 UNITS/ML 3 ML PEN SC SCH (09:00)
[2017-05-04] MEDS ORDERED: METHYLPREDNISOLONE 4 MG TAB PO SCH (09:00)
[2017-05-04] MEDS: CHOLESTYRAMINE LIGHT 4 GM PKT PO SCH (12:19)
[2017-05-04] MEDS: ACETAMINOPHEN 325 MG TAB PO PRN (14:23)
[2017-05-04] MEDS ORDERED: HMLIS SC (15:40)
[2017-05-04] MEDS ORDERED: INSDGIPEN SC ×2 (15:41)
[2017-05-04] MEDS ORDERED: LPR25 PO (15:41)
[2017-05-04] MEDS ORDERED: LSX40 PO (15:41)
--- NOTE | 2017-05-04 15:51 | Discharge Instructions ---
Discharge Instructions Date of Service May 04, 2017. Admission Reason for Admission: CHF Discharge Discharge Diagnosis / Problem: Peripheral edema, fall Discharge Goals Goal(s): Decrease discomfort, Improve function, Diagnostic testing, Therapeutic intervention Activity Recommendations Activity Limitations: resume your previous activity (as tolerated) . Instructions / Follow-Up Instructions / Follow-Up You were admitted to the hospital with worsening lower extremity swelling, worse in the left leg. There was initially concern about an exacerbation of your chronic congestive heart failure, and you were diuresed. Cardiology was consulted, however, and Dr. Jacobson does not believe this swelling to be due to your congestive heart failure but rather the disease in the veins in your legs, and recommends ablation of the diseased veins. Some changes were also made to your heart medications to help alleviate the swelling. Medications: *STOP diltiazem, as this could contribute to your swelling. Please instead take metoprolol tartrate (Lopressor) 25 mg twice a day. *Your furosemide (Lasix) dose has been decreased to 40 mg daily. *Some changes have been made to your insulin regimen for better coverage. Please continue to take Lantus 35 units in the morning. Your nighttime Lantus dose has been decreased to 30 units. Your Humalog has been changed to the following scheduled doses: NO HUMALOG AT BREAKFAST, 5 units Humalog at lunch, and 10 units Humalog at dinner. Please be sure to check your blood sugars before meals and bedtime. *You may take over the counter Tylenol as needed for leg pain. Please do not take more than directed. *Continue your other home medications as prescribed. Follow up: *You will be scheduled to follow up with Dr. Sainz regarding the treatment of your venous disease. *Please keep your previously scheduled appointment with Dr. Monson on May 12 regarding your gout. *You will be scheduled to follow up with your primary care provider. Please seek medical attention if you experience fevers, chills, sweats, dizziness/lightheadedness, loss of consciousness, chest pain, shortness of breath, nausea, vomiting, numbness or tingling. Current Hospital Diet Patient's current hospital diet: Diabetes Type 2 Diet Discharge Diet Recommended Diet: Diabetes Type 2 Diet Pending Studies Studies pending at discharge: no Laboratory Results Hemoglobin A1c Test 05/03/17 07:07 Range/Units Estimated Average Glucose 266 mg/dl Hemoglobin A1c 10.9 H 4.5-5.6 % Medical Emergencies . Who to Call and When: Medical Emergencies: If at any time you feel your situation is an emergency, please call 911 immediately. . Non-Emergent Contact Non-Emergency issues call your: Primary Care Provider, Contract Technician, Specialist (Document Clerk) . Past History Medical & Surgical History: (1) Peripheral edema . "Provider Documentation" section prepared by Janki Ruth. . VTE Core Measure Inpt VTE Proph given/why not?: Other Anticoagulation (Eliquis)
--- NOTE | 2017-05-04 16:06 | Discharge Summary ---
Discharge Summary Date of Service May 04, 2017. Discharge Summary Admission Date: May 02, 2017 at 13:59 Discharge Date: May 04, 2017 Discharge Disposition: Home with services Principal Diagnosis: Peripheral edema Problems/Secondary Diagnoses: Demand ischemia Venous insufficiency Hypoalbuminemia History of fall Left forehead laceration Multiple contusions Left leg hematoma Chronic diastolic CHF Moderate mitral valve regurgitation Chronic atrial fibrillation HTN H/o CVA DM II CKD stage III Hypothyroidism Gout Overactive bladder Immunizations: Have You Had Influenza Vaccine: Yes Influenza Vaccine Date: Jan 13, 2006 History of Tetanus Vaccine?: Yes History of Pneumococcal: Yes Pneumococcal Date: Jan 13, 2006 History of Hepatitis B Vaccine: No Procedures: Interpretation Summary * Name: MALATHI SOUZA Study Date: 05/02/2017 03:00 PM BP: 145/76 mmHg * Patient Location: 2E\S\E210\S\1 HR: 106 * : 1935 (M/d/yyyy) Gender: Female Height: 65 in * Age: 81 yrs Ethnicity: MT Weight: 200 lb * Ordering Physician: Niecy Ng * Referring Physician: Self, Referred * Performed By: Airam Alvarez RCS * * Reason For Study: CHF * BSA: 2.0 m2 * Normal biventricular systolic function. * Mild concentric left ventricular hypertrophy. * Mild biatrial dilatation. * Moderate mitral and tricuspid regurgitation. * Moderately elevated estimated right ventricular systolic pressure. * -- Conclusions -- * Aortic valve sclerosis mild, without significant aortic valvular stenosis. Procedure Details * A complete two-dimensional transthoracic echocardiogram was performed (2D, M-mode, Doppler and color flow Doppler). * A contrast injection of Definity was performed to improve assessment of LV function. * Contrast was injected into an intravenous site in the right arm. * One vial of Definity ultrasound contrast was diluted in normal saline to a total volume of 10 ml. A total of '2' ml of solution was administered during imaging. * Lot # [id number] of Definity utilized for procedure. * Expiration date 1 APR 26. * The attending nurse who injected the contrast agent was LLUVIA NEUMANN, BONITA. Left Ventricle * The left ventricle is normal in size. * There is mild concentric left ventricular hypertrophy. * Left ventricular systolic function is normal. * Ejection Fraction = 65-70%. * The left ventricular wall motion is normal. Right Ventricle * The right ventricle is normal in size and function. Atria * The left atrium is mildly dilated. * The right atrium is mildly dilated. Mitral Valve * Calcified mitral apparatus. * There is no mitral valve stenosis. * There is moderate mitral regurgitation. Tricuspid Valve * The tricuspid valve is not well visualized. * There is no tricuspid stenosis. * There is moderate tricuspid regurgitation. * Right ventricular systolic pressure is elevated at 40-50mmHg. Aortic Valve * Aortic valve sclerosis mild, without significant aortic valvular stenosis. * No aortic regurgitation is present. Pulmonic Valve * The pulmonic valve is not well visualized. * There is no pulmonic valvular stenosis. * There is no pulmonic valvular regurgitation. Great Vessels * The aortic root is normal size. * There is aortic root sclerosis/calcification. Pericardium/Pleural * There is no pericardial effusion. Great Vessels * Inferior vena cava poorly visualized Consultations: Cardiology Medication Reconciliation New Medications: Furosemide (Furosemide) 40 Mg Tab 40 MG PO DAILY for 30 Days, #30 TAB Insulin Glargine (Lantus Solostar) 100 Unit/Ml Inj 35 UNITS SC QAM for 30 Days, #30 DOSE Insulin Glargine (Lantus Solostar) 100 Unit/Ml Inj 30 UNITS SC HS for 30 Days, #30 DOSE Metoprolol Tartrate (Lopressor) 25 Mg Tab 25 MG PO BID for 30 Days, #60 TAB Changed Medications: Insulin Human Lispro (Humalog Kwikpen) 100 Units/Ml Inj 1 DOSE SC UD for 30 Days, #450 UNITS (Changed from: USE PER SLIDING SCALE; MAXIMUM OF 25 UNITS PER DAY.) NO INSULIN WITH BREAKFAST, 5 units with lunch, 10 units with dinner Continued Medications: Apixaban (Eliquis) 2.5 Mg Tab 2.5 MG PO BID Ascorbic Acid (Vitamin C) 500 Mg Tab 1 TAB PO DAILY Betamethasone Dip (Betamethasone Dipropionat) 45 Appln/15 Gm Cr 1 APPLN TOP DAILY PRN for RASH Calcium Carbonate (Calcium 600) 600 Mg Tab 600 MG PO DAILY Cetirizine (Zyrtec) 10 Mg Tab 10 MG PO DAILY PRN for ALLERGIES Cholecalciferol (Vitamin D3) 1,000 Unit Tab 1000 UNITS PO DAILY Cholestyramine (Prevalite) 4 Gm Pack 0.5-1 PKT PO DAILY Febuxostat (Uloric) 40 Mg Tab 40 MG PO DAILY Ferrous Gluconate (Ferrous Gluconate) 324 Mg Tab 1 TAB PO DAILY Gabapentin (Gabapentin) 400 Mg Cap 400 MG PO BID Levothyroxine Sodium (Synthroid) 100 Mcg Tab 100 MCG PO DAILY Loratadine (Claritin) 10 Mg Tab 10 MG PO HS Losartan Potassium (Losartan Potassium) 25 Mg Tab 25 MG PO DAILY Methylprednisolone (Methylprednisolone) 4 Mg Tab 4 MG PO DAILY Oxybutynin Chloride (Oxybutynin Chloride ER) 10 Mg Tabcr 10 MG PO DAILY Spironolactone (Aldactone) 50 Mg Tab 50 MG PO DAILY Discontinued Medications: Diltiazem Hcl Ext Rel (Tiazac) 120 Mg Capcr 120 MG PO DAILY Furosemide (Lasix) 40 Mg Tab 40 MG PO BID Insulin Glargine (Lantus) 100 Unit/Ml Inj 35 UNITS SC BID Discharge Exam The patient reports feeling well. She does still complain of a 2/10 aching pain in her LLE, worst around the knee area. She had not yet received any Tylenol today at the time of my exam. She otherwise denies complaints. Constitutional: No fever, No chills, No sweats Eyes: No worsening of vision, No eye pain, No diplopia ENT: No hearing loss, No nasal symptoms, No trouble swallowing Respiratory: No cough, No wheezing, No shortness of breath Cardiovascular: No chest pain, No claudication, No palpitations Abdomen: No pain, No nausea, No vomiting Musculoskeletal: +L knee pain, LLE pain. Bilateral lower extremity swelling Genitourinary - Female: No dysuria, No urinary retention, No hematuria Neurologic: No paralysis, No weakness, No numbness/tingling Integumentary: No rash, No itch, No color change General appearance: +Obese. Well-developed, well-nourished, no apparent distress Head: +Ecchymoses across left side of face w/healing superficial abrasions. Normocephalic Eyes: Normal inspection, PERRL, EOMI ENT: Normal ENT inspection, hearing grossly normal, pharynx normal Neck: Supple, no JVD, trachea midline Respiratory/Chest: +Decreased breath sounds in bases. Lungs clear to auscultation, no respiratory distress Cardiovascular: +Irregularly irregular, rate controlled. No gallop, no murmur Abdomen/GI: Normal bowel sounds, non-tender, soft Extremities/Musculoskeletal: +2+ pitting edema. Skin tears left anterior bobby covered in Optifoam, healing. No calf tenderness Neurological/Psych: Alert, normal mood/affect, oriented x 3 Skin: +Ecchymoses left side of face and LLE. Normal color, warm/dry, no rash Hospital Course 81 y/o female with diastolic CHF, a-fib, HTN, h/o CVA, DM II, CKD stage III, hypothyroidism, and gout who was admitted on 05/02 with increased lower extremity edema and mechanical fall. Possible acute on chronic diastolic CHF--per cardiology, NOT acute CHF but rather peripheral edema -Admit to telemetry. No acute events overnight. Pt in a-fib with HR 70s-80s -Daily weights, strict I's & O's -No significant diuresis w/IV Lasix. Slight elevation of creatinine but still w /in baseline. Will actually decrease home Lasix to 40 mg PO qd -Repeat echo shows LVEF 65-70%, moderate mitral regurg, moderate tricuspid regurg. Moderate elevated RSVP -Cardiology consulted, appreciate recs: not decompensation of CHF but rather peripheral edema. Will stop diltiazem as this could contribute to edema and place on beta cezar instead. Recent constant steroid use could also contribute. Known venous reflux, could benefit with radiofrequency ablation of diseased veins. -Continue losartan, spironolactone, Lopressor 25 mg PO BID Lower extremity edema L>R--following fall on left side, unlikely cellulitis -Doppler negative for DVT -Wound care nurse consulted: wounds on anterior LLE almost healed, Optifoam applied -Blood cultures NGTD -Diltiazem d/c'd in case contributing to edema per cardiology -F/u with Dr. Sainz regarding vein ablation. Pt states she had actually seen him back in fall and had procedure scheduled, but was talked out of it by daughter in law Demand ischemia/elevated trop--stable, likely due to recent fall -Troponin 0.056-->0.061-->0.064 -Repeat troponin 0.048 HTN, a-fib--stable -Diltiazem d/c'd per cardio, start Lopressor 25 mg PO BID instead -Continue losartan 25 mg PO qd, Eliquis with renal dosing at 2.5 mg p.o. twice daily CKD III-IV: baseline cr is 1.5-1.8--stable -Creatinine at baseline DM II, uncontrolled, on long-term insulin--HgbA1c 10.9 on 05/03, with hypoglycemia here in the mornings -Spoke with batch and furnace manager, recommended lowering nighttime Lantus by ~10% due to low BSG in morning. Recommends decreasing Lantus and increasing Humalog for outpatient -Continue Lantus 35 units SC qam -Decrease Lantus 30 units SC hs, will continue at d/c -Insulin sliding scale. D/C with Humalog 5 units at lunch, 10 units at dinner ( none at breakfast) -Check BSGs q ac and qhs at home and follow-up with PCP Gout -Continue Medrol 4 mg PO qd, Uloric -Scheduled to f/u with Dr. Monson 05/12 Hypothyroid--stable -TSH WNL -Continue Synthroid 100 mcg PO qd DVT prophylaxis -Eliquis Code Status -Level I, FULL RESUSCITATION STATUS Dispo -PT/OT clear to return to independent living at the [facility] w/home health Total Time Spent: Greater than 30 minutes This includes examination of the patient, discharge planning, medication reconciliation, and communication with other providers. Discharge Instructions Please refer to the electronic Patient Visit Report (Discharge Instructions) for additional information. Follow-Up With PCP within 1-2 weeks With rheumatology in 1 week as scheduled With cardiology for reevaluation of venous insufficiency within 1 month Additional Copies To Fernando Esquivel M.D.; Kaylah Monson MD; Erik Jacobson M.D. Reviewed: Pt Seen/Exam by Me History Physician Educational Audiologist supervision Note: I interviewed and examined the patient. Discussed with TALI Ruth and agree with findings and plan as documented in the note. Any exceptions or clarifications are listed here: Patient still having some pain in the left leg at the site of her hematoma. Denies shortness of breath or chest pain. She is ambulating around the room without difficulty. Remains in rate controlled atrial fibrillation on telemetry monitoring. Vitals reviewed General appearance: +Obese. Well-developed, well-nourished, no apparent distress Head: +Ecchymoses across left side of face w/ healing superficial abrasions. Laceration above left eyebrow with 2 tails of 6-0 Prolene lodged in the wound- removed by me and wound was redressed Eyes: Normal inspection, EOMI ENT: Normal ENT inspection, hearing grossly normal, pharynx normal Neck: Supple, trachea midline Respiratory/Chest: +Decreased breath sounds in bases. Lungs clear to auscultation, no respiratory distress Cardiovascular: +Irregularly irregular, rate controlled. No gallop, no murmur Abdomen/GI: Normal bowel sounds, non-tender, soft Extremities/Musculoskeletal: 2+ pitting edema to the knees bilaterally, left medial proximal tibia with overlying hematoma that is tender to touch with mild erythema and ecchymosis throughout the entire anterior leg. Skin tears left anterior bobby covered in Optifoam, healing. No calf tenderness Neurological/Psych: Alert, normal mood/affect, oriented x 3 Skin: +Ecchymoses left side of face and LLE. Normal color, warm/dry, no rash Patient is an 81-year-old female with history of chronic atrial fibrillation on Eliquis, Demand ischemia,Venous insufficiency, chronic diastolic CHF, valvular disease, HTN, history of CVA, CKD stage III-IV, hypothyroidism, DM 2, gout on chronic steroids currently, overactive bladder, here with recent fall with multiple contusions and increase in lower extremity edema. Admitted initially for suspected acute on chronic diastolic CHF, but most likely just worsening peripheral edema from venous insufficiency in light of hematoma in the leg and fall with increased sedentary lifestyle and dependent edema. Also with demand ischemia. -Avoid aggressive diuresis given possibility to worsening renal function- decrease Lasix to 40 mg once daily -Continue Eliquis for CVA prevention in the setting of chronic A. fib -Follow-up with cardiology to discuss treatment of her venous insufficiency -Continue ice packs and supportive care for her hematoma and pain in the leg -Left forehead laceration-wound care at home, suture removal performed today -Appreciate cardiology consultation Documented By: Louise Walter
--- NOTE | 2017-05-04 17:38 | CARDIOLOGY PROGRESS NOTE ---
DATE: 05/04/2017 SUBJECTIVE: The patient was seen by me this morning in her telemetry unit room. This was at approximately 9:00 a.m. She states that she slept well overnight. No orthopnea or PND. On my arrival to the room, she was lying flat in bed without any respiratory distress. She denies any chest pain. No palpitations. No lightheadedness. No syncope. No abdominal pain or nausea. She does complain of left knee discomfort. No pain in her lower legs. She continues to have peripheral edema in both lower legs. No bleeding complaints. No new cerebrovascular complaints. MEDICATIONS: This morning were methylprednisolone 4 mg daily, Lantus insulin 35 units subQ daily, metoprolol tartrate 25 mg b.i.d., Lantus insulin 30 units subQ at bedtime, Cholestyramine 4 grams q. 24 hours, vitamin C 500 mg daily, vitamin D 1000 units daily, ferrous gluconate 325 mg daily, losartan 25 mg daily, spironolactone 50 mg daily, calcium carbonate 1250 mg daily, Ditropan XL 10 mg daily, furosemide 80 mg p.o. daily, levothyroxine 100 mcg daily, Eliquis 2.5 mg b.i.d., gabapentin 400 mg b.i.d., loratadine 10 mg at bedtime, Uloric 40 mg q.p.m., sliding scale, regular insulin. Several p.r.n. medications. ALLERGIES AND ADVERSE DRUG REACTIONS: CODEINE AND EPINEPHRINE. DATA: Monitor history reviewed by me. Atrial fibrillation. Ventricular rates this morning from the 70s to the 90s. Increased rate, when the patient was getting out of bed. Intake and output yesterday - 1495/1775. PHYSICAL EXAMINATION: VITAL SIGNS: This morning at 8:01 a.m. with oral temperature 36.4, pulse 107, blood pressure 133/92, pulse oximetry 97% on room air. GENERAL APPEARANCE: Shows her to be in no distress. MOUTH: Moist mucous membranes. NECK: No jugular venous distention. LUNGS: Normal respiratory effort. Clear. No rales or wheezes. HEART: Irregularly irregular. No murmur. No S3 or rub. ABDOMEN: Soft and nontender. No palpable masses or organomegaly. No bruits. EXTREMITIES: 2+ bilateral pretibial edema. NEUROLOGICAL: Alert and oriented x3. Motor grossly intact. PSYCHIATRIC: Affect normal. LABORATORY DATA: This morning with WBC 10.62, hemoglobin 11.5, hematocrit 33.8, and platelet count 158. Metabolic profile with sodium 137, potassium 4.1, chloride 105, carbon dioxide 26, BUN 64, creatinine 1.74, random glucose 72. Troponin I 0.048. ASSESSMENT: 1. Atrial fibrillation. This is chronic. Relatively good control of ventricular response this morning. Her pulse rate this morning on her vital signs was reported to be elevated. Review of monitor by me shows ventricular rates in the 70s-90s. 2. Status post mechanical fall last week. Multiple ecchymoses on face. No fractures noted on imaging last week. Status post suturing of laceration of the left thigh last week. Chronic peripheral edema. Multifactorial in origin. She does have documentation of significant venous insufficiency in both legs. Also, she had been on diltiazem which could contribute to development of peripheral edema. Her serum albumin is decreased. This could also contribute to development of peripheral edema. She has elevated right heart pressures which would also increase peripheral edema. Echocardiogram on May 03 revealed normal biventricular systolic function. 4. History of left ventricular diastolic dysfunction. No current signs or symptoms of pulmonary vascular congestion. 5. Mild anemia. 6. Chronic kidney disease. BUN and creatinine increased today compared to yesterday. She received intravenous diuretics yesterday. 7. Mildly elevated blood pressure this morning. 8. Mildly elevated troponin I's. No anginal type symptoms. Electrocardiogram without any diagnostic ischemic changes. Normal left ventricular wall motion on echocardiogram. Suspect the enzyme elevation secondary to her chronic kidney disease as well as demand ischemia. Nothing clinically to suggest an acute coronary syndrome. RECOMMENDATIONS: 1. From a cardiac standpoint, no further testing at this time. 2. If her ventricular rate remains in the 90s later today after receiving her morning metoprolol and if her systolic blood pressure remains elevated, could increase metoprolol dose. 3. No further intravenous diuretics. 4. Continue long-term anticoagulation therapy with Eliquis. Reduce dose in light of her renal dysfunction. 5. Increase activity. Recommendations from physical therapy whether she can be discharged home.
[2017-05-05] MEDS ORDERED: FUROSEMIDE 40 MG TAB PO SCH (09:00)
== END 2017-05-04 16:40 | disposition home health service (06) | DRG 291 ==
LOC: C.EDB 10:06 → C.2E 13:59 → ENRESERV 14:09
PROVIDERS: ADMIT Family Medicine; ATTEND Internal Medicine
DX: I13.0 Hypertensive heart and chronic kidney disease with heart failure and stage 1 through stage 4 chronic kidney disease, or unspecified chronic kidney disease (principal); I50.33 Acute on chronic diastolic (congestive) heart failure; S01.81XA Laceration without foreign body of other part of head, initial encounter; M10.9 Gout, unspecified; E11.9 Type 2 diabetes mellitus without complications; E03.9 Hypothyroidism, unspecified; R60.9 Edema, unspecified; N18.3 Chronic kidney disease, stage 3 (moderate); I48.2 Chronic atrial fibrillation; E88.09 Other disorders of plasma-protein metabolism, not elsewhere classified; I34.0 Nonrheumatic mitral (valve) insufficiency; W19.XXXA Unspecified fall, initial encounter; Z88.5 Allergy status to narcotic agent; Z79.4 Long term (current) use of insulin; Z86.73 Personal history of transient ischemic attack (TIA), and cerebral infarction without residual deficits; Z91.018 Allergy to other foods; Z82.49 Family history of ischemic heart disease and other diseases of the circulatory system; Z80.0 Family history of malignant neoplasm of digestive organs

== ENCOUNTER → 2017-06-08 | Outpatient (CLI) | payer OTHER, MEDICARE ==
[~2017-06-08] MED LIST changes: -DILT120C68 PO; -FRS/40 PO; -INSDGI SC; +INSDGIPEN SC; +LPR25 PO; +LSX40 PO; +MDR4 PO
[2017-06-08 14:42] LABS: HEMATOCRIT 34.2 % (37-47); HEMOGLOBIN 11.2 g/dL (12.0-16.0); MEAN CELL VOLUME 91.7 fL (80-100); MEAN CORPUSCULAR HGB CONC 32.7 g/dl (32-36); MEAN PLATELET VOLUME 9.1 fL (7.4-10.4); PLATELET COUNT 234 K/uL (130-400); RED CELL DISTRIBUTION WIDTH CV 15.8 % (11.5-14.5); RED CELL DISTRIBUTION WIDTH SD 52.7 fL (36.4-46.3); WHITE BLOOD COUNT 13.71 K/uL (4.8-10.8)
[2017-06-08 15:11] LABS: ALT/SGPT 27 U/L (12-78); BLOOD UREA NITROGEN 88 mg/dl (7-18); CALCIUM 9.4 mg/dl (8.5-10.1); CARBON DIOXIDE 22 mmol/L (21-32); CREATININE 1.62 mg/dl (0.60-1.20); GLUCOSE 154 mg/dl (70-99); POTASSIUM 4.2 mmol/L (3.5-5.1); SODIUM 135 mmol/L (136-145); URIC ACID 7.5 mg/dl (2.6-7.2)
[2017-06-08 15:14] LABS: ALKALINE PHOSPHATASE 111 U/L (45-117); AST/SGOT 18 U/L (15-37); TOTAL PROTEIN 6.6 gm/dl (6.4-8.2)
== END | disposition home or self-care (01) ==
LOC: C.LAB1850 13:44
PROVIDERS: ATTEND Internal Medicine Nephrology
DX: N18.3 Chronic kidney disease, stage 3 (moderate) (principal); I12.9 Hypertensive chronic kidney disease with stage 1 through stage 4 chronic kidney disease, or unspecified chronic kidney disease; N25.81 Secondary hyperparathyroidism of renal origin; E55.9 Vitamin D deficiency, unspecified; R80.9 Proteinuria, unspecified; D64.9 Anemia, unspecified

== ENCOUNTER → 2017-06-23 | Day surgery (SDC) | payer OTHER, MEDICARE ==
[~2017-06-23] VITALS: Ht 165.1 cm; Wt 91.0 kg
[~2017-06-23] MED LIST changes: +FENTANYL CITRATE INJ 50 MCG/1 ML 2 ML VIAL IV ONE; +FENTANYL CITRATE INJ 50 MCG/1 ML 2 ML VIAL ONE; +LIDOCAINE HCL 1% 20 ML VIAL ONE; +LIDOCAINE HCL 1% 20 ML VIAL SQ ONE; +LIDOCAINE/EPINEPHRINE 1% INJ 50 ML VIAL ONE; +MIDAZOLAM HCL 1 MG/ML 2ML VIAL IV ONE; +MIDAZOLAM HCL 1 MG/ML 2ML VIAL ONE; +ORM MISCELLANEOUS MED XX ONE; +SODIUM BICARB 8.4% INJ 50 MEQ/50 ML SYR IV ONE; +SODIUM CHLORIDE 0.9% 1000ML IV SCH
--- NOTE | 2017-06-23 08:49 | Pre Sedation Assessment ---
Pre Sedation Assessment General Date of Sedation: Jun 23, 2017. Review Cardiovascular: + irregularly irregular Lungs: chest non-tender, lungs clear Pre-Sedation Airway Assessment Smoking Status: Never Smoker Hx of Sleep Apnea: No Hx of difficult intubation: No Short Thick Neck: No Thyro-mental Distance: > 3 Finger Breadths Oral Cavity: Dental Abnormalities Mallampati Classification: Class II ASA Classification: Class III Procedure Planning Contraindications for Sedation: None Current Medications Reviewed: Yes Notes The planned sedation has been discussed with the patient. Informed Consent was obtained. I have identified the patient, determined the appropriateness of sedation and have assessed the patient immediately prior to the procedure. All medicine(s) and interventions are by my order.
--- NOTE | 2017-06-23 08:49 | History and Physical ---
History & Physical Date Jun 23, 2017. History of Present Illness 81-year-old white female with a longstanding history of chronic atrial fibrillation; history of CVA in 2007, which was felt to be secondary to a thromboembolic event from atrial fibrillation. She also has a history of congestive heart failure secondary to left ventricular diastolic dysfunction. A prior cardiac catheterization performed in 2006 revealed normal coronary arteries. She additionally has a history of chronic lower extremity edema, dyslipidemia, hypertension, type 2 diabetes mellitus, chronic kidney disease, nonalcoholic cirrhosis, asthma, and hypothyroidism. The patient has had vascular studies to evaluate her peripheral edema. Lower extremity venous duplex evaluation in November 2016 revealed a dilated right greater saphenous vein with reflux. Right SSV dilated with reflux. Left greater saphenous vein dilated and showed reflux. Left SSV dilated and without reflux. No evidence of deep venous thrombosis or superficial venous thrombosis. It was felt that both the right GSV and SSV and the left GSV were amenable to undergoing radiofrequency venous ablation. She presented to the ED at [facility] on 05/02/2017 with complaints of worsening lower extremity edema and "weeping of fluid" from her left anterior calf. She noted that her edema had been worsening over the previous 6 months. Of note, she had been taking prednisone frequently to control her gout. She had previously been on colchicine, but it had been discontinued due to renal insufficiency. She denied shortness of breath or orthopnea, and chest x-ray showed no evidence of significant pulmonary vascular congestion. Albumin was low at 2.9. Echocardiogram showed normal biventricular systolic function, mild concentric LVH, mild biatrial dilatation, moderate MR/TR, and moderately elevated RVSP. Dr. Jacobson saw the patient in consultation and did not feel her presentation was consistent with CHF. The edema was felt to be multifactorial in origin from venous insufficiency, Diltiazem therapy, low albumin, and elevated right heart pressures. He recommended switching her Diltiazem to Metoprolol tartrate 25 mg BID. He also felt that she would benefit from radiofrequency ablation of her diseased veins which have reflux. She was treated with IV Lasix during the admission, and her PO Lasix was decreased from 40 mg BID to 40 mg daily. Past Medical/Surgical History As discussed above Additional History Hepatic Disease: Yes Endocrine Disorder: Yes Kidney Disease: Yes Hypertension: Yes Heart Disease: Yes Bleeding Tendencies: No Infectious Diseases: No Allergies Coded Allergies: Codeine (Verified Allergy, Mild, N/V, 05/02/17) Epinephrine (Verified Allergy, Mild, HEART RACING, 05/02/17) Avocado (Verified Allergy, Unknown, STOMACH ACHE AND DIARRHEA, 05/02/17) Home Medications Scheduled Apixaban (Eliquis), 2.5 MG PO BID Ascorbic Acid (Vitamin C), 1 TAB PO DAILY Calcium Carbonate (Calcium 600), 600 MG PO DAILY Cholecalciferol (Vitamin D3), 1,000 UNITS PO DAILY Cholestyramine (Prevalite), 0.5-1 PKT PO DAILY Febuxostat (Uloric), 40 MG PO DAILY Ferrous Gluconate (Ferrous Gluconate), 1 TAB PO DAILY Furosemide (Furosemide), 40 MG PO DAILY Gabapentin (Gabapentin), 400 MG PO BID Insulin Glargine (Lantus Solostar), 35 UNITS SC QAM Insulin Glargine (Lantus Solostar), 30 UNITS SC HS Insulin Human Lispro (Humalog Kwikpen), 1 DOSE SC UD Levothyroxine Sodium (Synthroid), 100 MCG PO DAILY Loratadine (Claritin), 10 MG PO HS Losartan Potassium (Losartan Potassium), 25 MG PO DAILY Methylprednisolone (Methylprednisolone), 4 MG PO DAILY Metoprolol Tartrate (Lopressor), 25 MG PO BID Oxybutynin Chloride (Oxybutynin Chloride ER), 10 MG PO DAILY Spironolactone (Aldactone), 50 MG PO DAILY Scheduled PRN Betamethasone Dip (Betamethasone Dipropionat), 1 APPLN TOP DAILY PRN for RASH Cetirizine (Zyrtec), 10 MG PO DAILY PRN for ALLERGIES Physical Examination Skin: warm/dry Neck: supple, no adenopathy Respiratory/Chest: lungs clear Cardiovascular: + irregularly irregular Abdomen / GI: normal bowel sounds Extremities: + pertinent finding (left lower extremity edema) Neurologic/Psych: no motor/sensory deficits, alert Diagnosis chronic venous insufficiency ASA Classification: ASA Class II Plan of Treatment Proceed with left GSV RFA
[2017-06-23 09:00] VITALS: BP 150/79; PULSE 75; TEMP 37; O2SAT 98; Ht 165.1 cm; Wt 91.0 kg
--- NOTE | 2017-06-23 10:17 | Post Sedation Assessment ---
Post Sedation Assessment General Date of Sedation Jun 23, 2017. Post Procedure Recovery Score Activity: (2) Moves 4 extremities * Respiration: (2) Deep breath/cough Circulation: (2) +/-20% PreAnes Value Consciousness: (2) Fully Awake Oxygen Saturation: (2) > 92% On Room Air Post Anesthesia Score: 10 Discharge Sedation Level of Care: Fast Track Phase II Post Sedation Plan On clinical assessment, the patient appears to have tolerated the sedation without complications. Patient is recovering as anticipated. Patient will continue to be monitored by nursing and may be discharged when sedation discharge criteria are met per below protocol. Upon Completions of procedure and additional 15 minutes continue every 5 minute vital signs and the P.A.R. score; then discharge to a Phase I or Fast Track to Phase II per the following guidelines: * Discharge Patient to appropriate Phase II area if PAR is 8 or greater or return to pre- procedure baseline. The post - procedure orders will be as directed. * If PAR score is less than 8 or not return to pre-procedure baseline then patient will follow Phase I monitoring till PAR is reached for Phase II. The Phase I may be done in procedure room or may call to secure a Phase I area. * If naloxone or flumazenil are used for reversal, hold in Phase I for an additional 60 -120 minutes before discharge to Phase II. Please call the Sedation Physician to re-evaluate and complete post-note for discharge to Phase II area. Do NOT discharge from procedure sedation or Phase 1 until post- sedation evaluation note is complete by procedure /sedation MD Sedation Discharge Instructions to be given to the patient at discharge to home.
--- NOTE | 2017-06-23 10:20 | [facility] Operative Report ---
Operative Report Operative Date Jun 23, 2017. Pre-Operative Diagnosis Venous Insufficiency Post-Operative Diagnosis Venous Insufficiency Procedure(s) Performed Left Greater Saphenous Leg Vein Radiofrequency Ablation, Moderate Sedation from 0948 - 1010. Surgeon Dr. Sainz Bill Adjuster Surgeon(s) None Estimated Blood Loss 5 Findings Dilated left GSV. Edema Specimens None Drains None Anesthesia Type IV Sedat Cons RN Only Complication(s) none Disposition Recovery Room / PACU Description of Procedure US guided access Left GSV below the knee. Catheter inserted, 2.5cm from SFJ. Tumescent injected. US confirmed not in deep system. 3:20, 10 cycles of RFA left GSV. No complications. Patient tolerated well. US confirmed no DVT post procedure. Summary: 1. Successful RFA of left GSV I attest to the content of the Intraoperative Record and any orders documented therein. Any exceptions are noted below.
--- NOTE | 2017-06-23 10:22 | Discharge Instructions ---
Discharge Instructions Procedure Procedure Date: Jun 23, 2017. Reason for Visit: Chronic Venous Insufficiency. Discharge Discharge Date: Jun 23, 2017. Discharge Diagnosis: Chronic venous insufficiency Last Recorded Wt (Kilograms): 91 Anesthesia Post Anesthesia Instructions: If you have had General Anesthesia or IV Sedation: * Do not drive today. * Resume driving when surgeon permits. * Do not make important decisions or sign legal documents today. * Call surgeon for: 1. Temperature elevations greater than 101 degrees F. 2. Uncontrollable pain. 3. Excessive bleeding. 4. Persistent nausea and vomiting. 5. Medication intolerance (nausea, vomiting or rash). * For nausea and vomiting use only clear liquids such as: tea, soda, bouillon until nausea subsides, then gradually increase diet as tolerated. * If you have any concerns or questions, call your surgeon's office. If physician is unavailable and it is an emergency, call 911 or go to the nearest emergency room. Instructions Activity Recommendations: limitations as noted below Recommended Home Diet: resume previous diet, low sodium Allergies: Coded Allergies: Codeine (Verified Allergy, Mild, N/V, 05/02/17) Epinephrine (Verified Allergy, Mild, HEART RACING, 05/02/17) Avocado (Verified Allergy, Unknown, STOMACH ACHE AND DIARRHEA, 05/02/17) Follow Up Additional Instructions: Follow instructions as outlined in paperwork from Dr. Sainz' office. Up walking today. Follow up Ultrasound as scheduled. MAGALIS wrap until scheduled ultrasound Post ultrasound wear compression stockings indefinitely. Any severe pain, present to the emergency room for evaluation for DVT. Follow-up with: As scheduled Karmen Cruz Recommendations: Call your doctor if: * Temperature above 101 degrees * Pain not relieved by pain medicine ordered * There is increased drainage or redness from any incision * You have any unanswered questions or concerns. Your Doctors Instructions noted above were prepared by provider Robinson Sainz. Patient Signature Section: Patient Instructions Signature Page Jane Lawton Patient (or Guardian) Signature/Date: I have read and understand the instructions given to me by my caregivers. Caregiver/RN/Doctor Signature/Date: The above-named patient and/or guardian has received patient instructions on this date. + Original Patient Signature Page (only) stays with chart. Please make copy for patient.
[2017-06-23 10:32] VITALS: BP 143/72; PULSE 89; TEMP 36.6; O2SAT 95
[2017-06-23 11:02] VITALS: BP 140/65; PULSE 70; TEMP 36.6; O2SAT 95
== END | disposition home or self-care (01) ==
LOC: C.ACU 08:12
PROVIDERS: ATTEND Internal Medicine Interventional Cardiology
DX: I87.2 Venous insufficiency (chronic) (peripheral) (principal); I48.2 Chronic atrial fibrillation; Z86.73 Personal history of transient ischemic attack (TIA), and cerebral infarction without residual deficits; I50.9 Heart failure, unspecified; E78.5 Hyperlipidemia, unspecified; E11.22 Type 2 diabetes mellitus with diabetic chronic kidney disease; N18.9 Chronic kidney disease, unspecified; I13.0 Hypertensive heart and chronic kidney disease with heart failure and stage 1 through stage 4 chronic kidney disease, or unspecified chronic kidney disease; K74.60 Unspecified cirrhosis of liver; J45.909 Unspecified asthma, uncomplicated; E03.9 Hypothyroidism, unspecified; Z88.5 Allergy status to narcotic agent; Z91.018 Allergy to other foods; Z88.8 Allergy status to other drugs, medicaments and biological substances; Z79.01 Long term (current) use of anticoagulants; Z79.899 Other long term (current) drug therapy; Z79.4 Long term (current) use of insulin

== ENCOUNTER → 2017-10-12 | Outpatient (CLI) | payer OTHER, MEDICARE ==
[~2017-10-12] MED LIST changes: -CLR10 PO; -FENTANYL CITRATE INJ 50 MCG/1 ML 2 ML VIAL IV ONE; -FENTANYL CITRATE INJ 50 MCG/1 ML 2 ML VIAL ONE; -LIDOCAINE HCL 1% 20 ML VIAL ONE; -LIDOCAINE HCL 1% 20 ML VIAL SQ ONE; -LIDOCAINE/EPINEPHRINE 1% INJ 50 ML VIAL ONE; -MIDAZOLAM HCL 1 MG/ML 2ML VIAL IV ONE; -MIDAZOLAM HCL 1 MG/ML 2ML VIAL ONE; -ORM MISCELLANEOUS MED XX ONE; -SODIUM BICARB 8.4% INJ 50 MEQ/50 ML SYR IV ONE; -SODIUM CHLORIDE 0.9% 1000ML IV SCH
[2017-10-12 09:48] LABS: HEMATOCRIT 36.4 % (37-47); HEMOGLOBIN 11.8 g/dL (12.0-16.0); MEAN CELL VOLUME 93.6 fL (80-100); MEAN CORPUSCULAR HEMOGLOBIN 30.3 pg (25-34); MEAN CORPUSCULAR HGB CONC 32.4 g/dl (32-36); MEAN PLATELET VOLUME 9.5 fL (7.4-10.4); PLATELET COUNT 170 K/uL (130-400); RED CELL DISTRIBUTION WIDTH SD 54.6 fL (36.4-46.3); WHITE BLOOD COUNT 7.48 K/uL (4.8-10.8)
[2017-10-12 10:19] LABS: BLOOD UREA NITROGEN 71 mg/dl (7-18); CALCIUM 8.8 mg/dl (8.5-10.1); CARBON DIOXIDE 23 mmol/L (21-32); CREATININE 1.51 mg/dl (0.60-1.20); GLUCOSE 207 mg/dl (70-99); PHOSPHORUS 3.3 mg/dl (2.5-4.9); POTASSIUM 4.3 mmol/L (3.5-5.1); SODIUM 138 mmol/L (136-145); URIC ACID 6.4 mg/dl (2.6-7.2)
== END | disposition home or self-care (01) ==
LOC: C.LAB1850 08:45
PROVIDERS: ATTEND Internal Medicine Nephrology
DX: I12.9 Hypertensive chronic kidney disease with stage 1 through stage 4 chronic kidney disease, or unspecified chronic kidney disease (principal); N18.3 Chronic kidney disease, stage 3 (moderate); N25.81 Secondary hyperparathyroidism of renal origin; E55.9 Vitamin D deficiency, unspecified; R80.9 Proteinuria, unspecified; D64.9 Anemia, unspecified; K74.60 Unspecified cirrhosis of liver; M10.9 Gout, unspecified; Z79.52 Long term (current) use of systemic steroids